=== PATIENT | female | born 1955 | race Hispanic/Latino ===

== ENCOUNTER → 2016-07-09 | Outpatient (REF) | payer OTHER ==
[~2016-07-09] MED LIST: /MOM400 PO; /PROC25SU PR; /WARF5TA PO; ALBU0.084 IN; AMLO10TA2 PO; BACL5TA PO; BISA10SU30 PR; DOCU10ELUD PO; KEPP1000 PO; KLOR20TA PO; METO100T PO; SERT-141 PO; TYLE325T5 PO; VIMP100T PO; VITA100037 PO; [UNRECOGNIZED DRUG - CODE] PO; magnesium gluconate PO
[2016-07-09 18:49] LABS: INR 2.14
== END ==
LOC: M LAB REF 17:27
PROVIDERS: ATTEND Physician Assistant
DX: I26.99 Other pulmonary embolism without acute cor pulmonale (principal)

== ENCOUNTER → 2016-07-30 | Outpatient (REF) | payer OTHER ==
[2016-07-30 20:13] LABS: MEAN CORPUSCULAR HEMOGLOBIN 29.2 pg (27.0-33.0); MEAN CORPUSCULAR VOLUME 88.5 fl (80.0-96.0); RED CELL DISTRIBUTION WIDTH 12.3 % (11.5-14.5); WHITE BLOOD COUNT 7.8 K/mm3 (4.0-10.0)
[2016-07-30 20:17] LABS: INR 2.1
[2016-07-30 21:15] LABS: ALBUMIN 3.8 GM/DL (3.2-5.2); ALBUMIN/GLOBULIN RATIO 1.03 (1.00-1.93); ALKALINE PHOSPHATASE 84 U/L (45-117); ALT/SGPT 19 U/L (12-78); ANION GAP 8 MEQ/L (8-16); AST/SGOT 16 U/L (15-37); BILIRUBIN,TOTAL 0.3 MG/DL (0.2-1.0); BLOOD UREA NITROGEN 10 MG/DL (7-18); CALCIUM LEVEL 8.8 MG/DL (8.8-10.2); CARBON DIOXIDE LEVEL 31 MEQ/L (21-32); CHLORIDE LEVEL 106 MEQ/L (98-107); CHOLESTEROL LEVEL 173 MG/DL (<200); CREATININE FOR GFR 0.48 MG/DL (0.55-1.02); FREE T4 1.02 NG/DL (0.76-1.46); GLOMERULAR FILTRATION RATE > 60.0 (>45); GLUCOSE, FASTING 79 MG/DL (80-110); POTASSIUM SERUM 4.1 MEQ/L (3.5-5.1); SODIUM LEVEL 145 MEQ/L (136-145); TOTAL PROTEIN 7.5 GM/DL (6.4-8.2); TRIGLYCERIDES LEVEL 143 MG/DL (<150)
== END ==
LOC: M SFHCADAM 14:27
PROVIDERS: ATTEND Physician Assistant
DX: I26.99 Other pulmonary embolism without acute cor pulmonale (principal); I10 Essential (primary) hypertension; E78.4 Other hyperlipidemia; R63.5 Abnormal weight gain; E55.9 Vitamin D deficiency, unspecified

== ENCOUNTER 2016-09-14 11:34 | Inpatient (IN) | payer OTHER ==
[~2016-09-14] VITALS: Ht 152.4 cm; Wt 60.7 kg
[2016-09-14] MEDS ORDERED: ATOR40TA PO (11:48)
[2016-09-14 12:23] LABS: BASO % 0.3 % (0.0-1.0); EOS # 0.1 K/mm3 (0.0-0.50); LARGE UNSTAINED CELL # 0.1 K/mm3 (0.0-0.4); LARGE UNSTAINED CELL % 0.7 % (0.0-4.0); LYMPH # 1.1 K/mm3 (1.5-4.5); LYMPH % 12.4 % (24.0-44.0); MEAN CORPUSCULAR HEMOGLOBIN 29.9 pg (27.0-33.0); MEAN CORPUSCULAR HGB CONC 34.5 g/dl (32.0-36.5); MEAN CORPUSCULAR VOLUME 86.7 fl (80.0-96.0); MONO # 0.2 K/mm3 (0.0-0.8); MONO % 2.6 % (0.0-5.0); PLATELET COUNT, AUTOMATED 256 k/mm3 (150-450); RED CELL DISTRIBUTION WIDTH 12.4 % (11.5-14.5); WHITE BLOOD COUNT 8.4 K/mm3 (4.0-10.0)
[2016-09-14 12:35] LABS: INR 1.85
[2016-09-14 12:50] LABS: ALBUMIN 3.9 GM/DL (3.2-5.2); ALBUMIN/GLOBULIN RATIO 0.98 (1.00-1.93); ALKALINE PHOSPHATASE 84 U/L (45-117); ALT/SGPT 22 U/L (12-78); ANION GAP 8 MEQ/L (8-16); AST/SGOT 14 U/L (15-37); BILIRUBIN,DIRECT < 0.1 MG/DL (0.0-0.2); BILIRUBIN,TOTAL 0.4 MG/DL (0.2-1.0); BLOOD UREA NITROGEN 9 MG/DL (7-18); CARBON DIOXIDE LEVEL 31 MEQ/L (21-32); CHLORIDE LEVEL 104 MEQ/L (98-107); CREATININE FOR GFR 0.55 MG/DL (0.55-1.02); GLOMERULAR FILTRATION RATE > 60.0 (>45); GLUCOSE, FASTING 112 MG/DL (80-110); POTASSIUM SERUM 3.7 MEQ/L (3.5-5.1); SODIUM LEVEL 143 MEQ/L (136-145); TOTAL PROTEIN 7.9 GM/DL (6.4-8.2)
--- NOTE | 2016-09-14 12:51 | REP ---
CT of the brain without IV contrast: Comparison is 12/08/2014. There is no hemorrhage. There is no edema, mass effect or midline shift. There is an old right frontal lobe infarct, unchanged. The cortical stripe is otherwise unremarkable. Ventricles are normal size and midline. The visualized paranasal sinuses and mastoid air cells are clear. Impression: There is no hemorrhage, acute infarct or mass. There is an old right frontal lobe infarct, unchanged. Signed by Carlos Funk MD 09/14/2016 12:42 P
--- NOTE | 2016-09-14 12:57 | REP ---
The patient sitting AP and lateral chest: Comparisons 06/19/2015. The lung manriquez are clear. The cardiac size is normal The isadora, mediastinum, and bony thorax are unremarkable. Impression: Negative AP and lateral chest. Signed by Carlos Funk MD 09/14/2016 12:49 P
[2016-09-14] MEDS ORDERED: ASPIRIN 325 MG TAB PO ONE (13:15)
[2016-09-14] MEDS ORDERED: ATOR1TAB19 PO (13:44)
[2016-09-14] MEDS ORDERED: VITA-121 PO (13:44)
[2016-09-14] MEDS ORDERED: KEPP1000 PO (13:44)
[2016-09-14] MEDS ORDERED: VIMP200T PO (13:44)
[2016-09-14] MEDS ORDERED: WARF-18 PO (13:44)
[2016-09-14] MEDS ORDERED: WARF-23 PO (13:44)
--- NOTE | 2016-09-14 14:41 | HPEPDOC ---
General Date of Admission Sep 14, 2016 at 13:55 Primary Care Physician: PHYLLIS YOST PA-C Attending Physician: CARLOS A ACEVEDO MD Chief Complaint The patient is a 61-year-old female admitted with a reason for visit of Weakness Rt Side Body. Source: Patient, Family ([id number]) History of Present Illness Ms. Kumar is a 61 y/o woman with a history of left-sided hemiparesis due to a hemorrhagic CVA in 2012 who presented to the ED today with an episode of right sided weakness and double vision. She states that last night, she accidently took 2 dose of her evening keppra dose - she states her son gave her a dose before bed and then she woke up around midnight and thought she had forgotten to take it and so took another dose. She took morning dose of keppra today at 8 am. Shortly thereafter, while sitting at a table eating breakfast, she had sudden onset of right arm and leg weakness, accompanied by dizziness, double vision, and nausea. Her family noticed her speech was slow and she seemed mildly confused. Her family assisted her to the bathroom, where she had one episode of nonbloody emesis and one episode of non-bloody diarrhea. Patient states symptoms lasted for about 30 minutes total. She had no numbness, tingling, or change in sensation with this episode. She states that her strength and vision are back to normal. She still feels mildly dizzy and "blah " and has a mild headache. Her family believes she is speaking and thinking normally. At baseline, she is unable to move her left arm other than some movement of her fingers, and she is unable to move her left leg. She wears a brace on her left lower leg and walks with a walker at baseline. She has decreased sensation in her left arm and leg at baseline. Overall, left-sided symptoms remained unchanged from baseline during and since this episode. Home Medications Scheduled Atorvastatin Calcium (Atorvastatin Calcium) 10 Mg Tab, 10 MG PO QHS, (Reported) Cholecalciferol (Vitamin D-3) 1,000 Unit Tab, 1,000 UNIT PO DAILY, (Reported) Lacosamide (Vimpat) 200 Mg Tab, 200 MG PO BID, (Reported) Levetiracetam (Keppra) 1,000 Mg Tab, 1,000 MG PO BID, (Reported) Warfarin Sod (Warfarin Sodium) 2.5 Mg Tab, 2.5 MG PO 3XW, (Reported) THU/THU/THU Warfarin Sod (Warfarin Sodium) 5 Mg Tab, 5 MG PO 4XWK, (Reported) //SAT/SUN Allergies Coded Allergies: Heparin (Verified Allergy, Severe, HIT, 04/20/13) Lisinopril (Verified Allergy, Severe, Angioedema, 04/20/13) SEAFOOD (Verified Allergy, Unknown, Unknown, 04/20/13) Past Medical History Medical History 1. 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 History of dysphagia requiring PEG tube; PEG tube is now removed 3. Seizure disorder 4. History of Heparin-induced thrombocytopenia 5. History of DVT in left arm and PE - 12/2012 6. Vitamin D deficiency 7. Hyperlipidemia Surgical History 1. Hysterectomy 2. Left cataract surgery Family History Father: colon cancer Mother: HTN, HLD, CAD Brother: Type 2 DM Sister: hypothyroid Social History * Smoker: non-smoker Alcohol: Denies Drugs: denies Lives with her daughter Review of Symptoms Constitutional: Reports: Malaise, Weakness (left arm and leg - chronic; right arm and leg - resolved), Denies: Chills, Fever Eyes: Reports: Vision change (double vision, now resolved), Denies: Pain ENT: Reports: Head Aches (mild squeezing frontal headache), Denies: Ear Pain Skin: Denies: Rash, Lesions Pulmonary: Denies: Dyspnea, Cough Cardiovascular: Denies: Chest Pain, Palpitations, Orthopnea Gastrointestinal: Reports: Nausea, Vomiting, Abdominal Pain (mild), Diarrhea, Denies: Constipation, Melena, Hematochezia Genitourinary: Denies: Dysuria, Frequency, Incontinence Hematologic: Denies: Bruising, Bleeding Excessively Musculoskeletal: Reports: Other Symptoms (left arm held stiff in mild flexion at elbow), Denies: Neck Pain, Back Pain Neurological: Reports: Weakness (chronic left side; acute on right side, now resolved), Numbness (chronic left arm and left leg), Denies: Change in speech, Confusion, Seizures Psych: Reports: Mood Normal Physical Examination General Exam: Positive: Alert, Cooperative, No Acute Distress Eye Exam: Positive: PERRLA, Conjunctiva & lids normal, EOMI ENT Exam: Positive: Atraumatic, Mucous membr. moist/pink, Pharynx Normal Neck Exam: Positive: Supple, Negative: JVD, thyromegaly Chest Exam: Positive: Clear to auscultation, Normal air movement, Negative: Rales, Rhonchi, Wheezing Heart Exam: Positive: Rate Normal, Regular Rhythm, Normal S1, Normal S2, Negative: Murmurs Abdomen Exam: Positive: Normal bowel sounds, Soft, Negative: Tenderness, Hepatospenomegaly Extremity Exam: Positive: Other (brace on left leg), Negative: Clubbing, Cyanosis, Edema Skin Exam: Positive: Nl turgor and temperature, Negative: Rash Neuro Exam: Positive: Normal Speech (speaks with accent but no slurring noted) , Cranial Nerves 3-12 NL, Reflexes 2+ (bilateral patellar), Negative: Strength at 5/5 X4 ext (left health plan specialist strength 2/5; left arm 1/5; left leg 2/5; right arm, leg, and health plan specialist strength 5/5 at all joints), Normal Tone ( increased tone in left upper extremity), Sensation Intact (sensation decrease in left arm and left leg) Psych Exam: Positive: Mental status NL, Mood NL, Oriented x 3 Vital Signs Vital Signs Date Time Temp Pulse Resp B/P (MAP) Pulse Ox O2 Delivery O2 Flow Rate FiO2 09/14/16 12:50 154/91 (112) 09/14/16 12:49 74 09/14/16 12:34 98 09/14/16 12:03 96.5 19 Room Air Laboratory Data Labs 24H Laboratory Tests 2 09/14/16 12:05: Bedside Glucose (Misc Panel) 103 09/14/16 12:14: White Blood Count 8.4, Red Blood Count 4.78, Hemoglobin 14.3, Hematocrit 41.4, Mean Corpuscular Volume 86.7, Mean Corpuscular Hemoglobin 29.9, Mean Corpuscular Hemoglobin Concent 34.5, Red Cell Distribution Width 12.4, Platelet Count 256, Neutrophils (%) (Auto) 83.0H, Lymphocytes (%) (Auto) 12.4L, Monocytes (%) (Auto) 2.6, Eosinophils (%) (Auto) 1.0, Basophils (%) (Auto) 0.3, Neutrophils # (Auto) 7.0, Lymphocytes # (Auto) 1.1L, Monocytes # (Auto) 0.2, Eosinophils # (Auto) 0.1, Basophils # (Auto) 0.0, Large Unclassified Cells % 0.7 , Large Unclassified Cells # 0.1, Prothrombin Time 21.4H, Prothromb Time International Ratio 1.85, Activated Partial Thromboplast Time 35.9, Anion Gap 8 , Glomerular Filtration Rate > 60.0, Calcium Level 9.0, Aspartate Amino Transf ( AST/SGOT) 14L, Alanine Aminotransferase (ALT/SGPT) 22, Alkaline Phosphatase 84, Total Bilirubin 0.4, Direct Bilirubin < 0.1, Total Creatine Kinase 68, Creatine Kinase MB 1.0, Creatine Kinase MB Relative Index 1.47, Troponin I < 0.02, Total Protein 7.9, Albumin 3.9, Albumin/Globulin Ratio 0.98L, Lipase 114, Thyroid Stimulating Hormone (TSH) 0.824 CBC/BMP Laboratory Tests 09/14/16 12:14 Red Blood Count 4.78, Mean Corpuscular Volume 86.7, Mean Corpuscular Hemoglobin 29.9, Mean Corpuscular Hemoglobin Concent 34.5, Red Cell Distribution Width 12.4 , Neutrophils (%) (Auto) 83.0 H, Lymphocytes (%) (Auto) 12.4 L, Monocytes (%) ( Auto) 2.6, Eosinophils (%) (Auto) 1.0, Basophils (%) (Auto) 0.3, Neutrophils # ( Auto) 7.0, Lymphocytes # (Auto) 1.1 L, Monocytes # (Auto) 0.2, Eosinophils # ( Auto) 0.1, Basophils # (Auto) 0.0 RAD Interpretation STUDY: CXR Rad Actions: Report Reviewed RAD Interpretation: Normal Problems (1) Weakness of right side of body Status: Acute Response to Treatment: Improving Problem Text: Symptoms of right sided weakness and double vision resolved after 30 minutes. She has some residual headache, dizziness, and malaise. - Head CT shows no acute infarct or bleed. - Ddx: TIA vs. CVA vs. medication reaction due to taking an extra dose of keppra. S- he follows with Dr. Banda; ED physician spoke with him, and he recommended MRI/MRA which is pending. He recommended ASA 325 mg PO daily until INR is therapeutic. - INR 1.89 today. She normally takes Warfarin 2.5 mg on M,W,F and 5 mg ROW. Warfarin 7.5 mg ordered for today. Recheck PT/INR in the morning. - Neurochecks - Monitor on telemetry (2) History of hemorrhagic stroke with residual hemiparesis Problem Text: Left sided symptoms are at baseline per patient and family. (3) Hyperlipidemia Status: Chronic Response to Treatment: Stable Problem Text: Continue atorvastatin (4) Personal history of DVT (deep vein thrombosis) Status: Chronic (5) Seizure disorder Status: Chronic Response to Treatment: Stable Problem Text: Continue keppra and vimpat (6) History of heparin-induced thrombocytopenia Problem Text: avoid heparin Plan / VTE VTE Prophylaxis Ordered?: Yes (warfarin) CARLOS A ACEVEDO MD Sep 14, 2016 14:41
[2016-09-14 15:57] VITALS: BP 160/85
[2016-09-14 17:00] VITALS: BP 144/76
[2016-09-14] MEDS ORDERED: WARFARIN SOD 7.5 MG TAB PO ONE (17:00)
--- NOTE | 2016-09-14 19:34 | ECGEPIP ---
Stationary ECG Study [facility] - ED Test Date: 2016-09-14 Pat Name: INDIRA MCCLURE Department: Room: [facility] Gender: F Assistant Front End Manager: andrew : 1955 Requested By: REGINA Castro Order Number: [id number] Reading MD: Mirian Damon Measurements Intervals Crooks Rate: 61 P: 40 CT: 191 QRS: 23 QRSD: 101 T: 12 QT: 393 QTc: 399 Interpretive Statements SINUS RHYTHM NONSPECIFIC T-WAVE ABNORMALITY DECREASED RATE 04/20/13 Electronically Signed On 09-14-2016 19:34:11 EDT by Mirian Damon
[2016-09-14 20:16] VITALS: BP 142/83
[2016-09-14] MEDS: ATORVASTATIN 10 MG TAB PO SCH (21:05)
[2016-09-14] MEDS: levETIRAcetam 250MG TABLET (KEPPRA) PO SCH (21:05)
[2016-09-15 00:03] VITALS: BP 110/66
[2016-09-15 04:35] LABS: INR 2.34
[2016-09-15 04:40] LABS: ANION GAP 7 MEQ/L (8-16); BLOOD UREA NITROGEN 8 MG/DL (7-18); CALCIUM LEVEL 8.8 MG/DL (8.8-10.2); CARBON DIOXIDE LEVEL 28 MEQ/L (21-32); CHLORIDE LEVEL 107 MEQ/L (98-107); CREATININE FOR GFR 0.57 MG/DL (0.55-1.02); GLOMERULAR FILTRATION RATE > 60.0 (>45); GLUCOSE, FASTING 96 MG/DL (80-110); POTASSIUM SERUM 3.6 MEQ/L (3.5-5.1); SODIUM LEVEL 142 MEQ/L (136-145)
[2016-09-15 04:47] VITALS: BP 114/68
--- NOTE | 2016-09-15 05:46 | REP ---
MRA BRAIN WITHOUT CONTRAST: HISTORY: Infarction. 3D [id number] MR angiograph was performed at the level of the [place] of [place]. There is no aneurysm, arteriovenous malformation or atherosclerotic lesion. The major intracranial vessels are patent. The right vertebral artery is not seen. This may be secondary to hypoplasia or atherosclerotic disease. IMPRESSION: 1. There is no aneurysm or arteriovenous malformation. 2. The right vertebral artery is not seen. This may be secondary to hypoplasia or atherosclerotic disease. Signed by Cirilo Jones MD 09/15/2016 08:34 A
--- NOTE | 2016-09-15 05:49 | REP ---
MRI BRAIN WITHOUT CONTRAST: HISTORY: Infarction. COMPARISON: CT 09/14/2016 and MR 04/21/2013. An area of increased signal intensity on T2-weighted images is present in the right parietal lobe. There is dilatation of the overlying cortical sulci and posterior body of the right lateral ventricle. This represents an old infarction. A small chronic hemorrhagic component is present. Scattered punctate areas of increased signal intensity on T2-weighted images are present in the periventricular and subcortical white matter. This represents small vessel ischemic disease. There is no intraparenchymal hemorrhage, acute infarct, mass or midline shift. The ventricular system and cortical sulci are dilated consistent with minimal volume loss. There is no extracerebral collection. The sinuses are clear. IMPRESSION: 1. Old right parietal lobe infarction. 2. Minimal small vessel ischemic disease. 3. Minimal volume loss. Signed by Cirilo Jones MD 09/15/2016 08:35 A
[2016-09-15 08:00] VITALS: BP 117/68
[2016-09-15] MEDS ORDERED: ASPIRIN 325 MG TAB PO SCH (09:00)
[2016-09-15] MEDS ORDERED: SLF 3 ML SYR IV PRN (09:15)
[2016-09-15] MEDS: levETIRAcetam 250MG TABLET (KEPPRA) PO SCH ×2 (09:25→22:14)
[2016-09-15] MEDS: LACOSAMIDE 50 MG TAB (VIMPAT) PO SCH ×2 (09:25→22:15)
[2016-09-15] MEDS: VITAMIN D 1,000 INTERNATIONAL UNITS TABLET PO SCH (09:25)
--- NOTE | 2016-09-15 09:46 | IPNPDOC ---
Subjective Date Seen The patient was seen on 09/15/16. Subjective Chief Complaint/HPI The patient is a 61-year-old female admitted with a reason for visit of Weakness Rt Side Body. Events since last encounter Feels back to baseline except for mild dizziness with ambulation. MRI/MRA completed and negative for acute findings. Constitutional: Denies: Chills, Fever, Night Sweats Skin: Denies: Rash, Lesions, Breakdown Pulmonary: Denies: Dyspnea, Cough, Pleuritic Chest Pain, Other Symptoms Cardiovascular: Reports: Lt Headedness, Denies: Chest Pain, Palpitations, Orthopnea Gastrointestinal: Denies: Nausea, Vomiting, Abdominal Pain, Diarrhea, Constipation Genitourinary: Denies: Dysuria, Frequency, Incontinence, Retention Psych: Reports: Mood Normal, Denies: Depression, Memory Issues Objective Physical Examination General Exam: Positive: Alert, Cooperative, No Acute Distress Eye Exam: Positive: PERRLA, Conjunctiva & lids normal, EOMI ENT Exam: Positive: Atraumatic, Mucous membr. moist/pink, Pharynx Normal Neck Exam: Positive: Supple, Negative: JVD, thyromegaly Chest Exam: Positive: Clear to auscultation, Normal air movement, Negative: Rales, Rhonchi, Wheezing Heart Exam: Positive: Rate Normal, Regular Rhythm, Normal S1, Normal S2, Negative: Murmurs Abdomen Exam: Positive: Normal bowel sounds, Soft, Negative: Tenderness, Hepatospenomegaly Extremity Exam: Positive: Other (brace on left leg), Negative: Clubbing, Cyanosis, Edema Skin Exam: Positive: Nl turgor and temperature, Negative: Rash Neuro Exam: Positive: Normal Speech (speaks with accent but no slurring noted) , Cranial Nerves 3-12 NL, Reflexes 2+ (bilateral patellar), Negative: Strength at 5/5 X4 ext (left gluing pressman strength 2/5; left arm 1/5; left leg 2/5; right arm, leg, and gluing pressman strength 5/5 at all joints), Normal Tone ( increased tone in left upper extremity), Sensation Intact (sensation decrease in left arm and left leg) Psych Exam: Positive: Mental status NL, Mood NL, Oriented x 3 Assessment /Plan Problems (1) Weakness of right side of body Status: Acute Response to Treatment: Improving Problem Text: favor 2 Keppra toxicity 09/15/2016: No further weakness to right side. feels back to baseline except for mild dizziness with ambulation. Transfer to Med/surg. PT/OT ordered. Anticipate DC home in 1-2 days. INR therapeutic at 2.3 today. resume home warfarin dosing. ASA DC'd Symptoms of right sided weakness and double vision resolved after 30 minutes. She has some residual headache, dizziness, and malaise. - Head CT shows no acute infarct or bleed. 09/14/16 MRI/MRA NAD (2) History of hemorrhagic stroke with residual hemiparesis Problem Text: Left sided symptoms are at baseline per patient and family. (3) Hyperlipidemia Status: Chronic Response to Treatment: Stable Problem Text: Continue atorvastatin (4) Personal history of DVT (deep vein thrombosis) Permanent Comment: History of left upper extremity DVT and PE in 12/2012 Last Edited By: Lenora Wilson MD on Sep 14, 2016 14:37 Status: Chronic (5) Seizure disorder Status: Chronic Response to Treatment: Stable Problem Text: Continue keppra and vimpat (6) History of heparin-induced thrombocytopenia Problem Text: avoid heparin Plan/VTE VTE Prophylaxis Ordered?: Yes (warfarin) VS, I&O, 24H, Fishbone Vital Signs/I&O Vital Signs Date Time Temp Pulse Resp B/P (MAP) Pulse Ox O2 Delivery O2 Flow Rate FiO2 09/15/16 08:00 97.6 68 16 117/68 (84) 99 Room Air I&O- Last 24 Hours up to 6 AM 09/15/16 06:00 Intake Total 690 ml Output Total 550 ml Balance 140 ml Laboratory Data 24H LABS Laboratory Tests 2 09/14/16 12:05: Bedside Glucose (Misc Panel) 103 09/14/16 12:14: White Blood Count 8.4, Red Blood Count 4.78, Hemoglobin 14.3, Hematocrit 41.4, Mean Corpuscular Volume 86.7, Mean Corpuscular Hemoglobin 29.9, Mean Corpuscular Hemoglobin Concent 34.5, Red Cell Distribution Width 12.4, Platelet Count 256, Neutrophils (%) (Auto) 83.0H, Lymphocytes (%) (Auto) 12.4L, Monocytes (%) (Auto) 2.6, Eosinophils (%) (Auto) 1.0, Basophils (%) (Auto) 0.3, Neutrophils # (Auto) 7.0, Lymphocytes # (Auto) 1.1L, Monocytes # (Auto) 0.2, Eosinophils # (Auto) 0.1, Basophils # (Auto) 0.0, Large Unclassified Cells % 0.7 , Large Unclassified Cells # 0.1, Prothrombin Time 21.4H, Prothromb Time International Ratio 1.85, Activated Partial Thromboplast Time 35.9, Anion Gap 8 , Glomerular Filtration Rate > 60.0, Calcium Level 9.0, Aspartate Amino Transf ( AST/SGOT) 14L, Alanine Aminotransferase (ALT/SGPT) 22, Alkaline Phosphatase 84, Total Bilirubin 0.4, Direct Bilirubin < 0.1, Total Creatine Kinase 68, Creatine Kinase MB 1.0, Creatine Kinase MB Relative Index 1.47, Troponin I < 0.02, Total Protein 7.9, Albumin 3.9, Albumin/Globulin Ratio 0.98L, Lipase 114, Thyroid Stimulating Hormone (TSH) 0.824 09/14/16 15:35: Urine Appearance CLEAR, Urine Color STRAW, Urine pH 7.0, Urine Specific [place] 1.004, Urine Protein NEGATIVE, Urine Glucose (UA) NEGATIVE, Urine Ketones NEGATIVE, Urine Urobilinogen 0.2, Urine Bilirubin NEGATIVE, Urine Leukocyte Esterase NEGATIVE, Urine Blood 1+H, Urine Nitrite NEGATIVE, Urine WBC (Auto) 0, Urine RBC (Auto) 1, Urine Hyaline Casts (Auto) 0, Urine Bacteria (Auto) NEGATIVE , Urine Squamous Epithelial Cells 0, Urine Sperm (Auto) 09/15/16 04:14: Prothrombin Time 25.7H, Prothromb Time International Ratio 2.34, Anion Gap 7L, Glomerular Filtration Rate > 60.0, Calcium Level 8.8, Blood Urea Nitrogen 8, Creatinine 0.57, Sodium Level 142, Potassium Level 3.6, Chloride Level 107, Carbon Dioxide Level 28 CBC/BMP Laboratory Tests 09/14/16 12:14 Red Blood Count 4.78, Mean Corpuscular Volume 86.7, Mean Corpuscular Hemoglobin 29.9, Mean Corpuscular Hemoglobin Concent 34.5, Red Cell Distribution Width 12.4 , Neutrophils (%) (Auto) 83.0 H, Lymphocytes (%) (Auto) 12.4 L, Monocytes (%) ( Auto) 2.6, Eosinophils (%) (Auto) 1.0, Basophils (%) (Auto) 0.3, Neutrophils # ( Auto) 7.0, Lymphocytes # (Auto) 1.1 L, Monocytes # (Auto) 0.2, Eosinophils # ( Auto) 0.1, Basophils # (Auto) 0.0 09/15/16 04:14 Calcium Level 8.8 Melissa Hutchison Sep 15, 2016 09:46 Wally Parker M.D. Sep 15, 2016 15:36
[2016-09-15 12:00] VITALS: BP 119/67
[2016-09-15 14:15] VITALS: BP 122/75
[2016-09-15] MEDS: SLF 3 ML SYR IV SCH ×2 (15:00→22:00)
[2016-09-15] MEDS ORDERED: WARFARIN SOD 2.5 MG TAB PO SCH (17:00)
[2016-09-15 22:00] VITALS: BP 110/66
[2016-09-15] MEDS: ATORVASTATIN 10 MG TAB PO SCH (22:14)
[2016-09-16 06:00] VITALS: BP 110/64
[2016-09-16] MEDS: SLF 3 ML SYR IV SCH (06:00)
[2016-09-16 06:25] LABS: BASO % 0.3 % (0.0-1.0); EOS # 0.2 K/mm3 (0.0-0.50); EOS % 2.7 % (0.0-3.0); LARGE UNSTAINED CELL # 0.1 K/mm3 (0.0-0.4); LARGE UNSTAINED CELL % 1.2 % (0.0-4.0); LYMPH # 2.2 K/mm3 (1.5-4.5); LYMPH % 28.6 % (24.0-44.0); MEAN CORPUSCULAR HEMOGLOBIN 30.4 pg (27.0-33.0); MEAN CORPUSCULAR HGB CONC 34.7 g/dl (32.0-36.5); MEAN CORPUSCULAR VOLUME 87.6 fl (80.0-96.0); MONO # 0.4 K/mm3 (0.0-0.8); MONO % 4.7 % (0.0-5.0); NEUTROPHILS # 4.7 K/mm3 (1.8-7.7); NEUTROPHILS % 62.6 % (36.0-66.0); PLATELET COUNT, AUTOMATED 257 k/mm3 (150-450); RED CELL DISTRIBUTION WIDTH 12.7 % (11.5-14.5); WHITE BLOOD COUNT 7.4 K/mm3 (4.0-10.0)
[2016-09-16 06:33] LABS: INR 2.59
[2016-09-16 06:42] LABS: ALBUMIN 3.3 GM/DL (3.2-5.2); ALBUMIN/GLOBULIN RATIO 0.92 (1.00-1.93); ALKALINE PHOSPHATASE 73 U/L (45-117); ALT/SGPT 19 U/L (12-78); ANION GAP 7 MEQ/L (8-16); AST/SGOT 12 U/L (15-37); BILIRUBIN,TOTAL 0.3 MG/DL (0.2-1.0); BLOOD UREA NITROGEN 12 MG/DL (7-18); CALCIUM LEVEL 8.5 MG/DL (8.8-10.2); CARBON DIOXIDE LEVEL 27 MEQ/L (21-32); CHLORIDE LEVEL 108 MEQ/L (98-107); CREATININE FOR GFR 0.56 MG/DL (0.55-1.02); GLOMERULAR FILTRATION RATE > 60.0 (>45); GLUCOSE, FASTING 93 MG/DL (80-110); POTASSIUM SERUM 3.6 MEQ/L (3.5-5.1); SODIUM LEVEL 142 MEQ/L (136-145); TOTAL PROTEIN 6.9 GM/DL (6.4-8.2)
[2016-09-16] MEDS: VITAMIN D 1,000 INTERNATIONAL UNITS TABLET PO SCH (08:19)
[2016-09-16] MEDS: levETIRAcetam 250MG TABLET (KEPPRA) PO SCH (08:21)
[2016-09-16] MEDS: LACOSAMIDE 50 MG TAB (VIMPAT) PO SCH (08:21)
[2016-09-16] MEDS ORDERED: WARFARIN SOD 5 MG TAB PO SCH (17:00)
--- NOTE | 2016-09-16 20:02 | DSES ---
DATE OF ADMISSION: 09/14/2016 DATE OF DISCHARGE: 09/16/2016 PRIMARY CARE PROVIDER: Ruby Rendon PA-C HISTORY OF PRESENT ILLNESS: This is a 61-year-old female with a history of left-sided hemiparesis secondary to a hemorrhagic CVA in 2012, who presented to the emergency room secondary to an episode of right-sided weakness and double vision. The patient accidentally took a second dose of her evening Keppra, developed a sudden onset right arm and leg weakness with dizziness, double vision and nausea. Family had noticed that her speech was slow and she seemed mildly confused. She was assisted to the bathroom at that time, where she had an episode of nonbloody emesis and one episode of nonbloody diarrhea. Symptoms and episode lasted for approximately 30 minutes. Patient was brought to the emergency room for further evaluation, had complained of feeling very dizzy and blah upon evaluation. HOSPITAL COURSE : Patient underwent multiple imaging studies including MRI/MRA of the brain, CT of the brain, and chest x-ray, all of which proved negative for acute findings. Patient had some slight lightheadedness on initial admission, however that has resolved. She was maintained on telemetry for 24 hours and had negative findings. Patient was evaluated by physical therapy today, has been deemed safe for discharge, patient has public health services in the home and wishes to resume them. Patient denies any complaints today. Denies dizziness, headache, blurred vision, or shortness of breath. Daughter is at bedside. PHYSICAL EXAMINATION: Today: Blood pressure 110/64, oxygen saturation 94% on room air, respiratory rate 16, heart rate 70, temperature 97.4. HEENT: Neck is supple without lymphadenopathy or jugular venous distention (JVD). CARDIOVASCULAR: Heart rate and rhythm are regular. PULMONARY: Lungs are clear. NEUROLOGIC: Patient is alert and oriented times three. No resting tremors appreciated. Patient does have significant left-sided hemiparesis with an ankle foot orthosis (AFO) brace intact. PSYCHIATRIC: Affect is appropriate and congruent. Patient does understand Vietnamese and seems to speak and respond appropriately, however her daughter does provide some translation services in Romanian. DISCHARGE DIAGNOSES: 1. Right-sided weakness. 2. History of hemorrhagic stroke with residual left-sided hemiparesis. SECONDARY DIAGNOSES: Include: 1. Hyperlipidemia. 2. History of seizure disorder. 3. History of heparin-induced thrombocytopenia. 4. Personal history of deep venous thrombosis (DVT). PLAN: Patient will be discharged home. Diet is a 2 gram sodium. Activity is as tolerated with assistive devices as needed. Patient will resume her public health services within the home. MEDICATIONS: Are as follows: - atorvastatin 10 mg by mouth nightly - vitamin D3 1000 international units by mouth daily - glucosamine 200 mg by mouth twice a day - Keppra 1000 mg by mouth twice a day - warfarin sodium 2.5 mg by mouth three times per week, alternating with warfarin sodium 5 mg four times per week Patient is discharged in stable and satisfactory condition with no further questions at time of discharge.
== END 2016-09-16 11:59 | disposition home health service (06) | DRG 812 ==
LOC: M ED 12:37 → M ED INP 13:55 → M ICU 15:45 → M MSPAV 09-15 14:15
PROVIDERS: ADMIT Family Medicine; ATTEND Family Medicine
DX: T42.71XA Poisoning by unspecified antiepileptic and sedative-hypnotic drugs, accidental (unintentional), initial encounter (principal); I69.354 Hemiplegia and hemiparesis following cerebral infarction affecting left non-dominant side; R42 Dizziness and giddiness; R51 Headache; R53.81 Other malaise; G40.909 Epilepsy, unspecified, not intractable, without status epilepticus; M62.81 Muscle weakness (generalized); E55.9 Vitamin D deficiency, unspecified; E78.5 Hyperlipidemia, unspecified; Z88.8 Allergy status to other drugs, medicaments and biological substances; Z86.711 Personal history of pulmonary embolism; Z86.718 Personal history of other venous thrombosis and embolism; Z91.013 Allergy to seafood; Z79.01 Long term (current) use of anticoagulants; Z79.899 Other long term (current) drug therapy

== ENCOUNTER → 2016-09-29 | Outpatient (CLI) | payer OTHER ==
[~2016-09-29] MED LIST changes: +ATOR1TAB19 PO; +ATOR40TA PO; +VIMP200T PO; +VITA-121 PO; +WARF-18 PO; +WARF-23 PO
--- NOTE | 2016-09-29 16:08 | REPMRS ---
Patient History The patient states she has not had a clinical breast exam in over a year. No known family history of cancer. Digital Mammo Screening Bilat: September 29, 2016 - Exam #: [id number] Bilateral CC and MLO view(s) were taken. Technologist: Bernie Cervantes, Technologist Prior study comparison: December 25, 2014, bilateral digital mammo screening bilat performed at [facility]. FINDINGS: There are scattered fibroglandular densities. There is a moderate amount of residual fibroglandular tissue which is fairly symmetric. There is no interval development of dominant mass, architectural distortion, or clustered microcalcification typical of malignancy. There has been no change in the appearance of the mammogram from the prior studies. ASSESSMENT: BI-RADS/ACR category 1 mammogram. Negative. Recommendation Routine screening mammogram of both breasts in 1 year (for women over age 40). This mammogram was interpreted with the aid of an FDA-approved computer-aided dectection system. Electronically Signed By: Jose Calderon MD 09/29/16 0539
== END ==
LOC: M RAD 14:05
PROVIDERS: ATTEND Physician Assistant
DX: Z12.31 Encounter for screening mammogram for malignant neoplasm of breast (principal)

== ENCOUNTER → 2016-10-06 | Outpatient (REF) | payer OTHER ==
[~2016-10-06] MED LIST changes: -ATOR40TA PO; +ATOR40TA75 PO; +KEPP10002 PO
== END ==
LOC: M LAB REF 16:39
PROVIDERS: ATTEND Internal Medicine Medical Oncology
DX: I82.90 Acute embolism and thrombosis of unspecified vein (principal)

== ENCOUNTER → 2016-10-13 | Outpatient (CLI) | payer OTHER | LOC: M PT 13:00 | PROVIDERS: ATTEND Physician Assistant | DX: I69.059 Hemiplegia and hemiparesis following nontraumatic subarachnoid hemorrhage affecting unspecified side (principal) ==

== ENCOUNTER 2017-05-18 11:37 | Inpatient (IN) | payer OTHER ==
[2017-05-18 12:10] LABS: BEDSIDE GLUCOSE 77 MG/DL (80-115)
[2017-05-18 12:49] LABS: BASO % 0.2 % (0.0-1.0); EOS # 0.1 10^3/uL (0.0-0.50); EOS % 2.2 % (0.0-3.0); HEMATOCRIT 40.9 % (36.0-47.0); HEMOGLOBIN 13.6 g/dl (12.0-16.0); IMMATURE GRANULOCYTE % 0.3 % (0-3.0); LYMPH # 1.6 10^3/uL (1.5-4.5); LYMPH % 27.8 % (24.0-44.0); MEAN CORPUSCULAR HEMOGLOBIN 29.2 pg (27.0-33.0); MEAN CORPUSCULAR HGB CONC 33.3 g/dl (32.0-36.5); MEAN CORPUSCULAR VOLUME 87.8 fl (80.0-96.0); MONO # 0.3 10^3/uL (0.0-0.8); MONO % 4.7 % (0.0-5.0); NEUTROPHILS # 3.8 10^3/uL (1.8-7.7); NEUTROPHILS % 64.8 % (36.0-66.0); PLATELET COUNT, AUTOMATED 256 10^3/uL (150-450); RED BLOOD COUNT 4.66 10^6/uL (4.00-5.40); RED CELL DISTRIBUTION WIDTH 12.2 % (11.5-14.5); WHITE BLOOD COUNT 5.8 10^3/uL (4.0-10.0)
[2017-05-18 13:04] LABS: INR 2.18; PROTHROMBIN TIME 25.1 SECONDS (12.4-14.5)
[2017-05-18 13:05] LABS: PARTIAL THROMBOPLASTIN TIME 39.7 SECONDS (26.8-37.9)
[2017-05-18 13:21] LABS: ANION GAP 6 MEQ/L (8-16); BLOOD UREA NITROGEN 8 MG/DL (7-18); CALCIUM LEVEL 8.6 MG/DL (8.8-10.2); CARBON DIOXIDE LEVEL 31 MEQ/L (21-32); CHLORIDE LEVEL 106 MEQ/L (98-107); CPK CREATINE PHOSPHOKINASE 55 U/L (26-192); CREATININE FOR GFR 0.51 MG/DL (0.55-1.30); GLOMERULAR FILTRATION RATE > 60.0 (>45); GLUCOSE, FASTING 102 MG/DL (70-100); MB/CK RELATIVE INDEX 1.81 (< OR =4); POTASSIUM SERUM 3.8 MEQ/L (3.5-5.1); SODIUM LEVEL 143 MEQ/L (136-145); TROPONIN I < 0.02 NG/ML (< 0.10)
[2017-05-18 15:53] LABS: ERYTHROCYTE SEDIMENTATION RATE 17 mm/hr (0-30)
[2017-05-18] MEDS: WARFARIN SOD 2.5 MG TAB PO (17:25)
[2017-05-18] MEDS ORDERED: SLF 3 ML SYR IV (17:30)
[2017-05-18] MEDS: ASPIRIN 81 MG CHEW TABLET PO (18:14)
[2017-05-18 18:58] LABS: C REACTIVE PROTEIN QUANTITATIV < 0.30 MG/DL (0.00-0.30); CPK CREATINE PHOSPHOKINASE 80 U/L (26-192); MB/CK RELATIVE INDEX 1.25 (< OR =4); TROPONIN I < 0.02 NG/ML (< 0.10)
[2017-05-18] MEDS: amLODIPine 5 MG TAB PO (19:06)
[2017-05-18] MEDS: levETIRAcetam 250MG TABLET (KEPPRA) PO (21:13)
[2017-05-18] MEDS: ATORVASTATIN 10 MG TAB PO (21:13)
[2017-05-18] MEDS: SLF 3 ML SYR IV (21:14)
[2017-05-18] MEDS: ACETAMINOPHEN TAB 650MG DOSE (2X325MG) PO (21:14)
[2017-05-18] MEDS: LACOSAMIDE 50 MG TAB (VIMPAT) PO (21:14)
[2017-05-19 02:42] LABS: CPK CREATINE PHOSPHOKINASE 67 U/L (26-192); MB/CK RELATIVE INDEX 1.49 (< OR =4); TROPONIN I < 0.02 NG/ML (< 0.10)
[2017-05-19] MEDS: SLF 3 ML SYR IV ×3 (03:49→21:15)
[2017-05-19 05:35] LABS: BASO % 0.2 % (0.0-1.0); EOS # 0.3 10^3/uL (0.0-0.50); EOS % 2.9 % (0.0-3.0); HEMATOCRIT 40.3 % (36.0-47.0); HEMOGLOBIN 13.5 g/dl (12.0-16.0); IMMATURE GRANULOCYTE % 0.2 % (0-3.0); LYMPH # 3.3 10^3/uL (1.5-4.5); MEAN CORPUSCULAR HEMOGLOBIN 29.3 pg (27.0-33.0); MEAN CORPUSCULAR HGB CONC 33.5 g/dl (32.0-36.5); MEAN CORPUSCULAR VOLUME 87.6 fl (80.0-96.0); MONO # 0.5 10^3/uL (0.0-0.8); MONO % 5.8 % (0.0-5.0); NEUTROPHILS # 4.4 10^3/uL (1.8-7.7); NEUTROPHILS % 51.9 % (36.0-66.0); PLATELET COUNT, AUTOMATED 255 10^3/uL (150-450); RED CELL DISTRIBUTION WIDTH 12.2 % (11.5-14.5); WHITE BLOOD COUNT 8.6 10^3/uL (4.0-10.0)
[2017-05-19 05:43] LABS: INR 2.45; PROTHROMBIN TIME 27.6 SECONDS (12.4-14.5)
[2017-05-19 06:05] LABS: ALBUMIN 3.7 GM/DL (3.2-5.2); ALBUMIN/GLOBULIN RATIO 1.09 (1.00-1.93); ALKALINE PHOSPHATASE 72 U/L (45-117); ALT/SGPT 19 U/L (12-78); ANION GAP 8 MEQ/L (8-16); AST/SGOT 16 U/L (7-37); BILIRUBIN,TOTAL 0.4 MG/DL (0.2-1.0); BLOOD UREA NITROGEN 11 MG/DL (7-18); CALCIUM LEVEL 8.4 MG/DL (8.8-10.2); CARBON DIOXIDE LEVEL 28 MEQ/L (21-32); CHLORIDE LEVEL 108 MEQ/L (98-107); CHOLESTEROL LEVEL 162 MG/DL (<200); CREATININE FOR GFR 0.58 MG/DL (0.55-1.30); GLOMERULAR FILTRATION RATE > 60.0 (>45); GLUCOSE, FASTING 91 MG/DL (70-100); HDL CHOLESTEROL 81 MG/DL (>40); LDL CHOLESTEROL 63.6 MG/DL (<100); MAGNESIUM LEVEL 2.3 MG/DL (1.8-2.4); NON-HDL-C 81 MG/DL; POTASSIUM SERUM 3.7 MEQ/L (3.5-5.1); SODIUM LEVEL 144 MEQ/L (136-145); TOTAL PROTEIN 7.1 GM/DL (6.4-8.2); TRIGLYCERIDES LEVEL 87 MG/DL (<150)
[2017-05-19] MEDS: VITAMIN D 1,000 INTERNATIONAL UNITS TABLET PO (08:16)
[2017-05-19] MEDS: LACOSAMIDE 50 MG TAB (VIMPAT) PO ×2 (08:17→21:15)
[2017-05-19] MEDS: ASPIRIN 81 MG CHEW TABLET PO (08:17)
[2017-05-19] MEDS: levETIRAcetam 250MG TABLET (KEPPRA) PO ×2 (08:17→21:14)
[2017-05-19] MEDS: amLODIPine 5 MG TAB PO (08:17)
[2017-05-19] MEDS ORDERED: amLODIPine 5 MG TAB PO (09:00)
[2017-05-19 09:17] LABS: DRVV SCREEN 62.9 SEC
[2017-05-19 09:26] LABS: PTT LUPUS TYPE ANTICOAG SCREEN 1.5 (0-1.2)
[2017-05-19 09:33] LABS: DRVV CONFIRM 44.9 SEC; LUPUS CONFIRM RATIO 1.2
[2017-05-19 09:34] LABS: NORMALIZED RATIO 1.25 (0.00-1.20)
[2017-05-19 10:47] LABS: CPK CREATINE PHOSPHOKINASE 70 U/L (26-192); TROPONIN I < 0.02 NG/ML (< 0.10)
[2017-05-19 10:48] LABS: MB/CK RELATIVE INDEX 1.42 (< OR =4)
[2017-05-19] MEDS ORDERED: WARFARIN SOD 5 MG TAB PO (17:00)
[2017-05-19] MEDS: ATORVASTATIN 10 MG TAB PO (21:14)
[2017-05-19] MEDS: WARFARIN SOD 5 MG TAB PO (21:14)
[2017-05-20] MEDS: SLF 3 ML SYR IV (04:21)
[2017-05-20 05:41] LABS: BASO % 0.4 % (0.0-1.0); EOS # 0.3 10^3/uL (0.0-0.50); EOS % 3.3 % (0.0-3.0); IMMATURE GRANULOCYTE % 0.3 % (0-3.0); LYMPH # 2.7 10^3/uL (1.5-4.5); LYMPH % 34.4 % (24.0-44.0); MEAN CORPUSCULAR HEMOGLOBIN 29.1 pg (27.0-33.0); MEAN CORPUSCULAR HGB CONC 33.3 g/dl (32.0-36.5); MEAN CORPUSCULAR VOLUME 87.4 fl (80.0-96.0); MONO # 0.5 10^3/uL (0.0-0.8); MONO % 5.8 % (0.0-5.0); NEUTROPHILS # 4.5 10^3/uL (1.8-7.7); NEUTROPHILS % 55.8 % (36.0-66.0); PLATELET COUNT, AUTOMATED 263 10^3/uL (150-450); RED BLOOD COUNT 4.46 10^6/uL (4.00-5.40); RED CELL DISTRIBUTION WIDTH 12.2 % (11.5-14.5)
[2017-05-20 05:52] LABS: INR 2.91; PROTHROMBIN TIME 31.7 SECONDS (12.4-14.5)
[2017-05-20 05:59] LABS: ALBUMIN 3.4 GM/DL (3.2-5.2); ALBUMIN/GLOBULIN RATIO 0.92 (1.00-1.93); ALKALINE PHOSPHATASE 69 U/L (45-117); ALT/SGPT 15 U/L (12-78); ANION GAP 7 MEQ/L (8-16); AST/SGOT 13 U/L (7-37); BILIRUBIN,TOTAL 0.3 MG/DL (0.2-1.0); BLOOD UREA NITROGEN 14 MG/DL (7-18); CALCIUM LEVEL 8.4 MG/DL (8.8-10.2); CARBON DIOXIDE LEVEL 26 MEQ/L (21-32); CHLORIDE LEVEL 108 MEQ/L (98-107); CREATININE FOR GFR 0.51 MG/DL (0.55-1.30); GLOMERULAR FILTRATION RATE > 60.0 (>45); GLUCOSE, FASTING 101 MG/DL (70-100); POTASSIUM SERUM 3.8 MEQ/L (3.5-5.1); SODIUM LEVEL 141 MEQ/L (136-145); TOTAL PROTEIN 7.1 GM/DL (6.4-8.2)
[2017-05-20] MEDS: VITAMIN D 1,000 INTERNATIONAL UNITS TABLET PO (08:33)
[2017-05-20] MEDS: levETIRAcetam 250MG TABLET (KEPPRA) PO (08:34)
[2017-05-20] MEDS: ASPIRIN 81 MG CHEW TABLET PO (08:34)
[2017-05-20] MEDS: LACOSAMIDE 50 MG TAB (VIMPAT) PO (08:34)
[2017-05-20] MEDS: amLODIPine 5 MG TAB PO (08:35)
[2017-05-20] MEDS ORDERED: WARFARIN SOD 2.5 MG TAB PO (21:00)
[2017-05-22 00:06] LABS: HEXAGONAL PHASE PHOSPHOLIPID 4 sec (0-11)
== END 2017-05-20 13:06 | disposition home health service (06) | DRG 47 ==
LOC: M ED 11:37 → M ED INP 14:54 → M PCU 16:48
PROVIDERS: Hospitalist
DX: G45.9 Transient cerebral ischemic attack, unspecified (principal); I69.354 Hemiplegia and hemiparesis following cerebral infarction affecting left non-dominant side; I10 Essential (primary) hypertension; E78.5 Hyperlipidemia, unspecified; G40.909 Epilepsy, unspecified, not intractable, without status epilepticus; Z79.01 Long term (current) use of anticoagulants; Z88.8 Allergy status to other drugs, medicaments and biological substances; Z91.013 Allergy to seafood; Z86.718 Personal history of other venous thrombosis and embolism; Z86.711 Personal history of pulmonary embolism; Z90.710 Acquired absence of both cervix and uterus; Z79.899 Other long term (current) drug therapy

== ENCOUNTER → 2017-11-30 | Outpatient (REF) | payer OTHER ==
[2017-12-03 14:18] LABS: LACOSAMIDE LEVEL 21.9 ug/mL (5.0-10.0)
[2017-12-03 14:18] LABS: LEVETIRACETAM (KEPPRA) 57.9 ug/mL (10.0-40.0)
== END ==
LOC: M LABNEURO 13:30
DX: G40.909 Epilepsy, unspecified, not intractable, without status epilepticus (principal)

== ENCOUNTER → 2017-12-31 | Outpatient (CLI) | payer OTHER | LOC: M EKG 13:31 | DX: I25.10 Atherosclerotic heart disease of native coronary artery without angina pectoris (principal) | CPT/HCPCS: 93005 ==

== ENCOUNTER → 2018-08-27 | Outpatient (REF) | payer MEDICARE, MEDICAID ==
[~2018-08-27] MED LIST changes: -/MOM400 PO; -/PROC25SU PR; -/WARF5TA PO; +ACET1TAB55 PO; +AMLO5TAB6 PO; +ASPI-286 PO; +COMP1SUP2 PR; +COUM1TAB17 PO; +D 202000 PO; -DOCU10ELUD PO; +DOCU5LIQ PO; +MILK10SU PO; +NORC1TAB7 PO
[2018-08-27 20:57] LABS: HEMATOCRIT 44.4 % (36.0-47.0); HEMOGLOBIN 14.1 g/dl (12.0-15.5); MEAN CORPUSCULAR HEMOGLOBIN 29.4 pg (27.0-33.0); MEAN CORPUSCULAR HGB CONC 31.8 g/dl (32.0-36.5); MEAN CORPUSCULAR VOLUME 92.7 fl (80.0-96.0); PLATELET COUNT, AUTOMATED 287 10^3/uL (150-450); RED BLOOD COUNT 4.79 10^6/uL (4.00-5.40); WHITE BLOOD COUNT 7.6 10^3/uL (4.0-10.0)
[2018-08-27 21:11] LABS: ALBUMIN 3.9 GM/DL (3.2-5.2); ALT/SGPT 18 U/L (12-78); BILIRUBIN,TOTAL 0.3 MG/DL (0.2-1.0); BLOOD UREA NITROGEN 11 MG/DL (7-18); CALCIUM LEVEL 8.6 MG/DL (8.8-10.2); CARBON DIOXIDE LEVEL 31 MEQ/L (21-32); CHLORIDE LEVEL 106 MEQ/L (98-107); CHOLESTEROL LEVEL 202 MG/DL (<200); CHOLESTEROL RISK RATIO 2.589 (<5); CREATININE FOR GFR 0.48 MG/DL (0.55-1.30); FREE T4 0.93 NG/DL (0.76-1.46); GLOMERULAR FILTRATION RATE > 60.0 (>45); GLUCOSE, FASTING 76 MG/DL (70-100); HDL CHOLESTEROL 78 MG/DL (>40); LDL CHOLESTEROL 101 MG/DL (<100); NON-HDL-C 124 MG/DL; POTASSIUM SERUM 4.1 MEQ/L (3.5-5.1); SODIUM LEVEL 142 MEQ/L (136-145); THYROID STIMULATING HORMONE 0.843 uIU/ML (0.358-3.740); TRIGLYCERIDES LEVEL 113 MG/DL (<150)
== END ==
LOC: M SFHCADAM 14:10
PROVIDERS: ATTEND Physician Assistant
DX: G40.909 Epilepsy, unspecified, not intractable, without status epilepticus (principal); I10 Essential (primary) hypertension; E78.5 Hyperlipidemia, unspecified
CPT/HCPCS: 80053; 80061; 84439; 84443; 85027; G0463

== ENCOUNTER 2018-09-12 10:58 | Emergency (ER) | payer MEDICARE, MEDICAID ==
[~2018-09-12] VITALS: Ht 149.9 cm; Wt 58.2 kg
[~2018-09-12 10:58] MED LIST changes: -NORC1TAB7 PO
--- NOTE | 2018-09-12 11:39 | REP ---
CT Head without contrast HISTORY: Head injury COMPARISON: 05/18/2017 An area of decreased attenuation is present in the right frontal and parietal lobes. There is dilatation of the overlying cortical sulci. This represents an old infarction. Areas of decreased attenuation are present in the periventricular white matter. This represents small-vessel ischemic disease. There is no intraparenchymal hemorrhage, acute infarct, mass or midline shift. The ventricular system the ventricular system and cortical sulci are dilated consistent with minimal volume loss. There is no extra cerebral collection. There is no fracture. The visualized sinuses are clear. IMPRESSION: 1. Old right frontal parietal lobe infarction. 2. Small vessel ischemic disease. 3. Minimal volume loss. Electronically Signed by Cirilo Jones MD 09/12/2018 11:31 A
--- NOTE | 2018-09-12 11:45 | REP ---
CT cervical spine without contrast HISTORY: Trauma COMPARISON: 12/18/2014 A congenital block vertebra is present at the C2-3 level. There is no acute fracture or subluxation. Disc bulges are present at the C3-4 through C5-6 levels. There is minimal narrowing of the spinal canal. The neural foramina are patent. The intervertebral discs and vertebral bodies are normal in height. IMPRESSION: 1. There is no acute fracture or subluxation. 2. There is cervical spondylosis at the C3-4 through C5-6 levels. Electronically Signed by Cirilo Jones MD 09/12/2018 11:37 A
[2018-09-12] MEDS ORDERED: NORCO, ANEXSIA 5/325MG TABLET (HYDROcodone/ACETAMINOPHEN) PO ONE (12:00)
--- NOTE | 2018-09-12 12:15 | REP ---
Bilateral ribs PA chest of four views History: Trauma Comparison: 05/18/2017 The lungs are clear. The heart is normal in size. The pulmonary vasculature is normal in appearance. The bony structure is intact. Impression: No acute disease. Electronically Signed by Cirilo Jones MD 09/12/2018 12:06 P
--- NOTE | 2018-09-12 12:33 | REP ---
LEFT HUMERUS TWO VIEWS: HISTORY: Trauma. There is no acute fracture or dislocation. The joint spaces are normal in appearance. IMPRESSION: There is no acute fracture or dislocation. Electronically Signed by Cirilo Jones MD 09/12/2018 12:54 P
[2018-09-12] MEDS ORDERED: NORC1TAB7 PO (13:07)
[2018-09-12 13:32] VITALS: BP 126/72
== END 2018-09-12 13:34 | disposition home or self-care (01) ==
LOC: M ED 10:58 → EDBD 10:58 → M ED 13:34
DX: S00.03XA Contusion of scalp, initial encounter (principal); S40.022A Contusion of left upper arm, initial encounter; S20.229A Contusion of unspecified back wall of thorax, initial encounter; W18.39XA Other fall on same level, initial encounter; Y92.018 Other place in single-family (private) house as the place of occurrence of the external cause; E78.5 Hyperlipidemia, unspecified; R56.9 Unspecified convulsions; G81.90 Hemiplegia, unspecified affecting unspecified side; Z79.899 Other long term (current) drug therapy; Z79.01 Long term (current) use of anticoagulants; Z88.8 Allergy status to other drugs, medicaments and biological substances; Z91.013 Allergy to seafood

== ENCOUNTER → 2018-09-22 | Outpatient (REF) | payer MEDICARE, MEDICAID ==
[~2018-09-22] MED LIST changes: +NORC1TAB7 PO
== END ==
LOC: M LAB REF 15:47
PROVIDERS: ATTEND Physician Assistant Medical
DX: G40.89 Other seizures (principal)

== ENCOUNTER → 2018-09-30 | Outpatient (REF) | payer MEDICARE, MEDICAID ==
[2018-10-05 00:06] LABS: LACOSAMIDE LEVEL 30.4 ug/mL (5.0-10.0); LEVETIRACETAM (KEPPRA) 60.9 ug/mL (10.0-40.0)
== END ==
LOC: M LAB REF 12:11
PROVIDERS: ATTEND Physician Assistant Medical
DX: G40.89 Other seizures (principal)

== ENCOUNTER → 2018-11-03 | Outpatient (CLI) | payer MEDICARE, MEDICAID ==
--- NOTE | 2018-11-03 16:32 | REP ---
BILATERAL SCREENING DIGITAL MAMMOGRAM WITH 3D TOMOSYNTHESIS: There are no palpable abnormalities or other breast complaints. The the patient states she has not had a clinical breast examination over a year. The the patient states she performs self-breast examinations 12 times per year. The Tyrer Cuzick Score is: 6.6% . Comparisons are 09/29/2016 and 12/25/2014. The breasts are heterogeneously dense, which could obscure small masses. There is no dominant mass, micro calcific cluster or architectural distortion that would indicate malignancy. There are benign calcifications. There are no additional findings on 3D tomosynthesiss. There is no change from the prior study. Impression: BIRADS/ACR category 2 mammogram. Benign findings . Recommendation: Routine annual screening mammography. Because of the increased breast density, annual adjunctive breast MRI in addition to screening mammography is recommended. This mammogram was interpreted with the aid of a FDA approved computer-aided detection system. A. Negative mammogram reports should not delay biopsy if a dominant or clinically suspicious mass is present. B. Not all breast cancers are identified by mammography or tomosynthesis. C. Adenosis and dense breasts may obscure an underlying neoplasm. Patient letter M1 dense breasts. Electronically Signed by Carlos Funk MD 11/03/2018 04:24 P
--- NOTE | 2018-11-04 08:57 | DEXA ---
AP SPINE L1 - L4 0.826 -3.0 -1.4 LT FEMUR TOTAL 0.639 -2.9 -1.7 LT NECK 0.745 -2.1 -0.6 RT FEMUR TOTAL 0.774 -1.9 -0.6 RT NECK 0.714 -2.3 -0.8 TOTAL BODY TOTAL OTHER COMMENTS: There is low bone density of the right hip. There is osteoporosis of the spine. There is osteoporosis of the left hip. FOLLOW-UP: Recommendation for the next bone density exam: 2 years. REJI
== END ==
LOC: M WHC 13:16
PROVIDERS: ATTEND Physician Assistant
DX: Z12.31 Encounter for screening mammogram for malignant neoplasm of breast (principal); Z13.820 Encounter for screening for osteoporosis; R92.1 Mammographic calcification found on diagnostic imaging of breast; M81.0 Age-related osteoporosis without current pathological fracture

== ENCOUNTER → 2018-12-29 | Outpatient (REF) | payer MEDICARE, MEDICAID ==
[2019-01-02 00:12] LABS: LACOSAMIDE LEVEL 11.9 ug/mL (5.0-10.0); LEVETIRACETAM (KEPPRA) 29.1 ug/mL (10.0-40.0)
== END ==
LOC: M LAB REF 11:29
PROVIDERS: ATTEND Physician Assistant Medical
DX: R56.9 Unspecified convulsions (principal); Z51.81 Encounter for therapeutic drug level monitoring; Z79.01 Long term (current) use of anticoagulants

== ENCOUNTER → 2018-12-29 | Outpatient (REF) | payer MEDICARE, MEDICAID ==
[2018-12-29 16:18] LABS: INR 2.59; PROTHROMBIN TIME 27.6 SECONDS (11.8-14.0)
== END ==
LOC: M LAB REF 11:31
PROVIDERS: ATTEND Family Medicine
DX: Z51.81 Encounter for therapeutic drug level monitoring (principal)

== ENCOUNTER → 2019-03-09 | Outpatient (CLI) | payer MEDICARE, MEDICAID ==
[~2019-03-09] MED LIST changes: +PROHANCE 279.3MG/ML 15ML VIAL (A9576) As Ordered ONE
[2019-03-09 10:03] LABS: BLOOD UREA NITROGEN 8 MG/DL (7-18); CREATININE FOR GFR 0.55 MG/DL (0.55-1.30); GLOMERULAR FILTRATION RATE > 60.0 (>45)
--- NOTE | 2019-03-09 13:02 | REP ---
MRI BILATERAL BREASTS WITH AND WITHOUT CONTRAST: HISTORY: Dense breasts. Comparison mammogram 11/03/2018. TECHNIQUE: Multiple sequences obtained in the axial, coronal, and sagittal planes prior to and following the intravenous administration of 12 mL ProHance. Images are evaluated in the [employer] software including axial dynamic T1 fat sat post gadolinium images, subtraction images, color overlay images, CAD images and MIP reconstruction images. Mild to moderate fibroglandular tissue is seen bilaterally. There is mild background parenchymal enhancement bilaterally. No significant cystic change is seen in either breast. There is no evidence of axillary adenopathy. I see no suspicious enhancing mass or morphologic abnormality. IMPRESSION: BIRADS category 1 negative bilateral breast MRI. No suspicious enhancing mass or morphologic abnormality. Electronically Signed by Carlos Valdivia MD 03/09/2019 01:55 P
== END ==
LOC: M RAD 08:56
PROVIDERS: ATTEND Physician Assistant
DX: R92.2 Inconclusive mammogram (principal); I10 Essential (primary) hypertension
CPT/HCPCS: 36415; 82565; 84520; A9576; C8908

== ENCOUNTER → 2019-06-24 | Outpatient (REF) | payer MEDICARE, MEDICAID ==
[~2019-06-24] MED LIST changes: -PROHANCE 279.3MG/ML 15ML VIAL (A9576) As Ordered ONE
[2019-06-28 00:06] LABS: LEVETIRACETAM (KEPPRA) 31.9 ug/mL (10.0-40.0)
== END ==
LOC: M LAB REF 10:29
PROVIDERS: ATTEND Physician Assistant Medical
DX: R56.9 Unspecified convulsions (principal)

== ENCOUNTER → 2019-09-06 | Outpatient (REF) | payer MEDICARE ==
[2019-09-06 11:15] LABS: HEMATOCRIT 42.4 % (36.0-47.0); HEMOGLOBIN 13.6 g/dl (12.0-15.5); MEAN CORPUSCULAR HEMOGLOBIN 28.9 pg (27.0-33.0); MEAN CORPUSCULAR HGB CONC 32.1 g/dl (32.0-36.5); MEAN CORPUSCULAR VOLUME 90.2 fl (80.0-96.0); PLATELET COUNT, AUTOMATED 285 10^3/uL (150-450); WHITE BLOOD COUNT 8.2 10^3/uL (4.0-10.0)
[2019-09-06 12:03] LABS: ALBUMIN 3.9 GM/DL (3.2-5.2); ALT/SGPT 19 U/L (12-78); BILIRUBIN,TOTAL 0.4 MG/DL (0.2-1.0); BLOOD UREA NITROGEN 9 MG/DL (7-18); CALCIUM LEVEL 8.9 MG/DL (8.8-10.2); CARBON DIOXIDE LEVEL 30 MEQ/L (21-32); CHLORIDE LEVEL 105 MEQ/L (98-107); CHOLESTEROL LEVEL 204 MG/DL (<200); CHOLESTEROL RISK RATIO 2.518 (<5); CREATININE FOR GFR 0.49 MG/DL (0.55-1.30); FREE T4 1.09 NG/DL (0.76-1.46); GLOMERULAR FILTRATION RATE > 60.0 (>45); GLUCOSE, FASTING 73 MG/DL (70-100); HDL CHOLESTEROL 81 MG/DL (>40); LDL CHOLESTEROL 101 MG/DL (<100); NON-HDL-C 123 MG/DL; SODIUM LEVEL 140 MEQ/L (136-145); TOTAL PROTEIN 7.3 GM/DL (6.4-8.2); TRIGLYCERIDES LEVEL 111 MG/DL (<150)
[2019-09-06 12:07] LABS: CREATININE, URINE 63.4 MG/DL; MALB URINE SIEMENS < 5.0 MG/L; MAU/CREAT RATIO 7.8 MCG/MG (0.0-30.0)
== END ==
LOC: M LAB REF 09:59
PROVIDERS: ATTEND Physician Assistant
DX: E55.9 Vitamin D deficiency, unspecified (principal); I10 Essential (primary) hypertension; Z79.899 Other long term (current) drug therapy

== ENCOUNTER → 2020-07-02 | Outpatient (REF) | payer MEDICARE, OTHER, MEDICAID ==
[~2020-07-02] MED LIST changes: +AMLO1TAB24 PO; -AMLO5TAB6 PO
== END ==
LOC: M LAB REF 13:29
PROVIDERS: ATTEND Physician Assistant Medical
DX: R56.9 Unspecified convulsions (principal)

== ENCOUNTER → 2020-07-04 | Outpatient (CLI) | payer MEDICARE, OTHER, MEDICAID | LOC: M LABSMTC 13:39 | PROVIDERS: ATTEND Pediatrics | DX: Z11.52 Encounter for screening for COVID-19 (principal) ==

== ENCOUNTER → 2020-08-14 | Outpatient (REF) | payer MEDICARE, OTHER, MEDICAID ==
[2020-08-14 15:25] LABS: INR 2.63; PROTHROMBIN TIME 28.7 SECONDS (12.5-14.3)
== END ==
LOC: M SFHCADAM 15:22
PROVIDERS: ATTEND Physician Assistant
DX: Z86.711 Personal history of pulmonary embolism (principal)

== ENCOUNTER → 2020-08-14 | Outpatient (REF) | payer MEDICARE, OTHER, MEDICAID | LOC: M LAB REF 11:24 | PROVIDERS: ATTEND Physician Assistant Medical | DX: G40.909 Epilepsy, unspecified, not intractable, without status epilepticus (principal); Z51.81 Encounter for therapeutic drug level monitoring; Z86.711 Personal history of pulmonary embolism ==

== ENCOUNTER → 2020-09-27 | Outpatient (REF) | payer MEDICARE, OTHER ==
[2020-09-27 13:56] LABS: HEMATOCRIT 45.3 % (36.0-47.0); HEMOGLOBIN 14.4 g/dl (12.0-15.5); MEAN CORPUSCULAR HEMOGLOBIN 29.2 pg (27.0-33.0); MEAN CORPUSCULAR HGB CONC 31.8 g/dl (32.0-36.5); MEAN CORPUSCULAR VOLUME 91.9 fl (80.0-96.0); PLATELET COUNT, AUTOMATED 287 10^3/uL (150-450); RED BLOOD COUNT 4.93 10^6/uL (4.00-5.40); WHITE BLOOD COUNT 6.9 10^3/uL (4.0-10.0)
[2020-09-27 14:09] LABS: CREATININE, URINE < 13.0 MG/DL; MALB URINE SIEMENS < 5.0 MG/L
[2020-09-27 14:14] LABS: ALBUMIN 4.1 GM/DL (3.2-5.2); ALT/SGPT 18 U/L (12-78); BILIRUBIN,TOTAL 0.4 MG/DL (0.2-1.0); BLOOD UREA NITROGEN 9 MG/DL (7-18); CALCIUM LEVEL 8.9 MG/DL (8.8-10.2); CARBON DIOXIDE LEVEL 33 MEQ/L (21-32); CHLORIDE LEVEL 108 MEQ/L (98-107); CHOLESTEROL LEVEL 238 MG/DL (<200); CHOLESTEROL RISK RATIO 3.012 (<5); CREATININE FOR GFR 0.42 MG/DL (0.55-1.30); FREE T4 0.93 NG/DL (0.76-1.46); GLOMERULAR FILTRATION RATE > 60.0 (>45); GLUCOSE, FASTING 72 MG/DL (70-100); HDL CHOLESTEROL 79 MG/DL (>40); LDL CHOLESTEROL 137 MG/DL (<100); NON-HDL-C 159 MG/DL; POTASSIUM SERUM 4.2 MEQ/L (3.5-5.1); SODIUM LEVEL 143 MEQ/L (136-145); TOTAL PROTEIN 7.6 GM/DL (6.4-8.2); TRIGLYCERIDES LEVEL 111 MG/DL (<150)
== END ==
LOC: M SFHCADAM 11:20
PROVIDERS: ATTEND Physician Assistant
DX: I69.059 Hemiplegia and hemiparesis following nontraumatic subarachnoid hemorrhage affecting unspecified side (principal); I10 Essential (primary) hypertension; E78.5 Hyperlipidemia, unspecified; G40.909 Epilepsy, unspecified, not intractable, without status epilepticus

== ENCOUNTER → 2020-10-18 | Outpatient (CLI) | payer MEDICARE, OTHER ==
--- NOTE | 2020-10-18 10:17 | REP ---
INDICATION: RUQ PAIN. COMPARISON: None. TECHNIQUE: Right upper quadrant sonography FINDINGS: Scanning through the right upper quadrant the abdomen demonstrates a normal sized and walled gallbladder containing mobile shadowing calculi the largest of which measures 1.1 cm in greatest diameter. The common bile duct is normal measuring 0.4 cm in greatest diameter. Liver is not enlarged. No focal liver lesion is seen. Limited views of pancreas show no abnormality. The tail of the pancreas is obscured by abdominal gas. There is no evidence of ascites or right renal abnormality. The right kidney measures 9.5 x 4.8 x 4.1 cm.. IMPRESSION: Cholelithiasis. Otherwise negative right upper quadrant sonogram. <Electronically signed by Jose Calderon > 10/18/20 [id number]
== END ==
LOC: M RAD 09:22
PROVIDERS: ATTEND Physician Assistant
DX: R10.11 Right upper quadrant pain (principal); K81.9 Cholecystitis, unspecified

== ENCOUNTER 2020-10-24 08:22 | Emergency (ER) | payer MEDICARE, OTHER ==
[~2020-10-24] VITALS: Ht 149.9 cm; Wt 59.1 kg
[2020-10-24] MEDS ORDERED: LEVE500T5 (08:41)
[2020-10-24 09:08] LABS: BASO % 0.3 % (0.0-1.0); EOS # 0.2 10^3/uL (0.0-0.5); EOS % 2.7 % (0.0-3.0); HEMATOCRIT 45.2 % (36.0-47.0); HEMOGLOBIN 14.2 g/dl (12.0-15.5); LYMPH # 1.8 10^3/uL (1.5-5.0); LYMPH % 25.9 % (24.0-44.0); MEAN CORPUSCULAR HEMOGLOBIN 29.2 pg (27.0-33.0); MEAN CORPUSCULAR HGB CONC 31.4 g/dl (32.0-36.5); MONO # 0.3 10^3/uL (0.0-0.8); MONO % 4.9 % (2.0-8.0); NEUTROPHILS # 4.6 10^3/uL (1.5-8.5); NEUTROPHILS % 66.1 % (36.0-66.0); PLATELET COUNT, AUTOMATED 193 10^3/uL (150-450); RED BLOOD COUNT 4.86 10^6/uL (4.00-5.40)
--- NOTE | 2020-10-24 09:30 | REP ---
INDICATION: CHEST PAIN. COMPARISON: Comparison chest x-ray September 12, 2018. TECHNIQUE: Two views.. FINDINGS: The lungs are well inflated and no infiltrate is seen. Pleural angles are sharp. Left hemidiaphragm is slightly elevated. The heart is enlarged unchanged. Thoracic aorta is tortuous. Pulmonary vasculature is not increased. EKG electrodes are seen. . there is a wedge-shaped compression fracture deformity at the thoracolumbar junction in what appears to be the L1 vertebral body. This is a new finding when compared with lumbar spine radiographs from December 18, 2014. It appears to be new from a 2017 prior chest x-ray as well. IMPRESSION: Mild cardiomegaly. Moderate wedge compression deformity at the L1 vertebral body as an interval change from the 2017 prior study. Otherwise no acute disease.. <Electronically signed by Jose Calderon > 10/24/20 [id number]
[2020-10-24 09:34] LABS: ALBUMIN 3.8 GM/DL (3.2-5.2); ALT/SGPT 29 U/L (12-78); BILIRUBIN,DIRECT 0.3 MG/DL (0.0-0.2); BILIRUBIN,TOTAL 0.6 MG/DL (0.2-1.0); BLOOD UREA NITROGEN 9 MG/DL (7-18); CALCIUM LEVEL 8.5 MG/DL (8.8-10.2); CARBON DIOXIDE LEVEL 26 MEQ/L (21-32); CHLORIDE LEVEL 111 MEQ/L (98-107); CK-MB VALUE MASS < 1.0 NG/ML (<3.6); CPK CREATINE PHOSPHOKINASE 76 U/L (26-192); CREATININE FOR GFR 0.55 MG/DL (0.55-1.30); GLOMERULAR FILTRATION RATE > 60.0 (>45); GLUCOSE, FASTING 85 MG/DL (70-100); LIPASE 147 U/L (73-393); MB/CK RELATIVE INDEX 1.32 (< OR =4); POTASSIUM SERUM 3.5 MEQ/L (3.5-5.1); SODIUM LEVEL 144 MEQ/L (136-145); TOTAL PROTEIN 7.4 GM/DL (6.4-8.2); TROPONIN I < 0.02 NG/ML (< 0.10)
--- NOTE | 2020-10-24 10:33 | ED PDOC ---
Post-Departure Follow-Up cxr formal report faxed to dr teresa for fu Darcie Ramos MD Oct 24, 2020 10:33
[2020-10-24] MEDS ORDERED: levETIRAcetam 250MG TABLET (KEPPRA) PO ONE (11:15)
[2020-10-24] MEDS ORDERED: LACOSAMIDE 50 MG TAB (VIMPAT) PO ONE (11:15)
[2020-10-24] MEDS: GASTROGRAFIN SOLUTION 30ML PO SCH ×2 (12:30→12:40)
[2020-10-24 12:44] LABS: INR 1.84; PROTHROMBIN TIME 21.7 SECONDS (12.5-14.3)
[2020-10-24 12:45] LABS: PARTIAL THROMBOPLASTIN TIME 33.9 SECONDS (24.2-38.5)
[2020-10-24] MEDS ORDERED: ISOVUE-370 76% 100ML VIAL As Ordered ONE (13:17)
--- NOTE | 2020-10-24 14:39 | REP ---
INDICATION: Gen abd pain. COMPARISON: Right upper quadrant ultrasound 10/18/2020, CT 12/18/2014 TECHNIQUE: Oral Gastrografin mixture per our CT bowel contrast protocol followed by 100 mL Isovue 370 scanning through abdomen and pelvis with coronal and sagittal reconstructions. FINDINGS: CT abdomen: The lung bases show essentially stable dependent atelectatic change or scarring without effusion or infiltrates. Heart size upper limits of normal without specific chamber enlargement left atrium is mildly prominent no pericardial thickening or effusion. Visualized portions of the thoracic aorta were unremarkable. Abdominal aorta without aneurysm or dissection. No hepatomegaly, splenomegaly, focal hepatic or splenic mass nor intrahepatic biliary dilatation. I see no ascites. Gallbladder is mildly distended and has some debris in its dependent portion corresponding to the shadowing stones seen on ultrasound 6 days ago. Common duct in the gio hepatis and pancreatic head region shows no stone or dilatation. Pancreas itself was without mass, peripancreatic fluid or adenopathy. Adrenal glands are normal. There is no renal stone disease, solid or cystic renal mass, hydronephrosis or hydroureter. No ureteral stone. Small bowel loops contrast filled to the terminal ileum with oral contrast reaching the splenic flexure. No bowel wall thickening or mesenteric edema about small bowel loops. Stool and gas seen in the colon without sign of colitis or diverticulitis in the abdomen proper. Stomach show couple of clips anteriorly deep to the right rectus fascia abutting the anterior gastric serosa. This may be related to the previous indwelling gastrostomy tube the patient indicated in her history. The bone windows show grade 1-2 anterior wedge compression deformity the superior endplate of L1, a new finding since the 2014 study. No other compression deformities. Some facet arthropathy lower lumbar spine. Remainder of visualized thoracic and lumbar vertebral bodies normal. I do not see a paraspinal hematoma to suggest that this is an acute compression deformity. The visualized lower ribs are intact. CT pelvis: The bony sacrum, pelvis and hips show some degenerative changes without destructive lesion or fracture there is a curvilinear ossific density posterior to the left femoral head that may be old trauma and is unchanged since the 2014 study.. Distal left colon and sigmoid show a few scattered diverticula without signs of diverticulitis no stricture or mass small bowel loops in the deep pelvis were unremarkable contrast filled. Appendix is seen and normal with oral contrast within it. No ventral or inguinal hernia nor pathologic sized inguinal adenopathy bladder shows evidence for pelvic floor muscular relaxation there is no a bladder mass, wall thickening or stone disease. Distal ureters without dilatation or stone. There are multiple pelvic phleboliths evident. There is no ventral or inguinal hernia nor pathologic sized inguinal adenopathy. No pelvic or intra-ascites. Lung window review of all CT slices of the pelvis and abdomen shows no perforation or free air IMPRESSION: 1. Layering debris in the gallbladder consistent with stones seen on the ultrasound last week. No intra or extrahepatic biliary dilatation hepatic or splenic abnormality or ascites. 2. Colon and small bowel loops without acute finding. Appendix normal. 3. Old posttraumatic change on the left posterior to the hip femoral head stable since 2015. Could be an old avulsion 4. Other upper abdominal solid organs, stomach and lung bases unremarkable. 5. Grade 1 anterior wedge compression deformity of L1 vertebral body without paraspinal hematoma to suggest acuity. It is not present on the [address] CT. 6. No renal, ureteral or bladder stone. <Electronically signed by Naun Espitia > 10/24/20 [id number]
[2020-10-24 16:00] VITALS: BP 147/81
--- NOTE | 2020-10-24 17:26 | ECGEPIP ---
[facility] - ED Test Date: 2020-10-24 Pat Name: INDIRA MCCLURE Department: Room: - Gender: Female Home [employer] Coordinator: : 1955 Requested By: RADHA Ash Order Number: [id number] Reading MD: Kodi Cardona Measurements Intervals [place] Rate: 66 P: 55 FL: 184 QRS: 23 QRSD: 98 T: 16 QT: 388 QTc: 406 Interpretive Statements Normal sinus rhythm with sinus arrhythmia INCOMPLETE RIGHT BUNDLE BRANCH BLOCK SIMILAR TO 12/31/17 Electronically Signed on 10-24-2020 17:25:51 EDT by Kodi Cardona
--- NOTE | 2020-10-28 15:43 | ED PDOC ---
Post-Departure Follow-Up radiology report faxed to Mirian Mcduffie MD Oct 28, 2020 15:43
== END 2020-10-24 16:00 | disposition home or self-care (01) ==
LOC: M ED 08:22 → EDBD 08:22 → M ED 16:00
DX: K80.50 Calculus of bile duct without cholangitis or cholecystitis without obstruction (principal); I45.19 Other right bundle-branch block; S32.010A Wedge compression fracture of first lumbar vertebra, initial encounter for closed fracture; X58.XXXA Exposure to other specified factors, initial encounter; Y92.9 Unspecified place or not applicable; Y93.9 Activity, unspecified; Y99.9 Unspecified external cause status; E78.5 Hyperlipidemia, unspecified; Z86.73 Personal history of transient ischemic attack (TIA), and cerebral infarction without residual deficits; G40.909 Epilepsy, unspecified, not intractable, without status epilepticus; E55.9 Vitamin D deficiency, unspecified; K57.90 Diverticulosis of intestine, part unspecified, without perforation or abscess without bleeding; Z79.01 Long term (current) use of anticoagulants; Z79.82 Long term (current) use of aspirin; Z88.8 Allergy status to other drugs, medicaments and biological substances; Z91.013 Allergy to seafood
CPT/HCPCS: 71046; 74177; 80048; 80076; 82550; 82553; 83690; 84439; 84443; 84484; 85025; 85610; 85730; 93005; 93041; 94760; 99285; Q9963; Q9967

== ENCOUNTER → 2020-11-20 | Outpatient (REF) | payer MEDICARE, OTHER ==
[~2020-11-20] MED LIST changes: +HYDR-3715 PO; +LEVE500T5 PO; +VIMP150T
[2020-11-25 07:07] LABS: LACOSAMIDE LEVEL 10.8 ug/mL (5.0-10.0); LEVETIRACETAM (KEPPRA) 18.2 ug/mL (10.0-40.0)
== END ==
LOC: M LABDRWAD 12:21
PROVIDERS: ATTEND Physician Assistant Medical
DX: Z01.818 Encounter for other preprocedural examination (principal); R56.9 Unspecified convulsions; Z51.81 Encounter for therapeutic drug level monitoring; Z79.01 Long term (current) use of anticoagulants; Z79.899 Other long term (current) drug therapy

== ENCOUNTER → 2020-11-20 | Outpatient (REF) | payer MEDICARE, OTHER ==
[2020-11-20 12:46] LABS: HEMATOCRIT 43.2 % (36.0-47.0); HEMOGLOBIN 13.9 g/dl (12.0-15.5); MEAN CORPUSCULAR HEMOGLOBIN 28.9 pg (27.0-33.0); MEAN CORPUSCULAR HGB CONC 32.2 g/dl (32.0-36.5); MEAN CORPUSCULAR VOLUME 89.8 fl (80.0-96.0); PLATELET COUNT, AUTOMATED 257 10^3/uL (150-450); RED BLOOD COUNT 4.81 10^6/uL (4.00-5.40); WHITE BLOOD COUNT 5.8 10^3/uL (4.0-10.0)
[2020-11-20 12:58] LABS: INR 3.14; PROTHROMBIN TIME 32.6 SECONDS (12.7-14.5)
[2020-11-20 13:15] LABS: ALT/SGPT 20 U/L (12-78); BILIRUBIN,TOTAL 0.4 MG/DL (0.2-1.0); BLOOD UREA NITROGEN 7 MG/DL (7-18); CALCIUM LEVEL 9.2 MG/DL (8.8-10.2); CARBON DIOXIDE LEVEL 33 MEQ/L (21-32); CHLORIDE LEVEL 111 MEQ/L (98-107); CREATININE FOR GFR 0.42 MG/DL (0.55-1.30); GLOMERULAR FILTRATION RATE > 60.0 (>45); GLUCOSE, FASTING 73 MG/DL (70-100); POTASSIUM SERUM 4.2 MEQ/L (3.5-5.1); SODIUM LEVEL 145 MEQ/L (136-145); TOTAL PROTEIN 7.4 GM/DL (6.4-8.2)
== END ==
LOC: M SFHCADAM 10:59
PROVIDERS: ATTEND Physician Assistant
DX: Z01.818 Encounter for other preprocedural examination (principal); Z79.01 Long term (current) use of anticoagulants

== ENCOUNTER → 2020-11-29 | Outpatient (CLI) | payer MEDICARE, OTHER ==
[~2020-11-29] MED LIST changes: -HYDR-3715 PO
== END ==
LOC: M LABSMTC 11:46
PROVIDERS: ATTEND Anesthesiology
DX: Z01.818 Encounter for other preprocedural examination (principal); Z11.52 Encounter for screening for COVID-19

== ENCOUNTER 2020-12-04 08:38 | Day surgery (SDC) | payer MEDICARE, OTHER ==
[~2020-12-04] VITALS: Ht 149.9 cm; Wt 56.7 kg
[~2020-12-04 08:38] MED LIST changes: +LR 1,000 ML IV ONE
[2020-12-04] MEDS ORDERED: MIDAZOLAM INJ 2MG/2ML VIAL (J2250 PER 1MG) As Ordered ONE (08:46)
[2020-12-04] MEDS ORDERED: fentaNYL 100 MCG/2 ML INJECTION (J3010) As Ordered ONE ×2 (08:48→11:38)
[2020-12-04 09:28] LABS: INR 1.2; PROTHROMBIN TIME 15.6 SECONDS (12.7-14.5)
[2020-12-04] MEDS ORDERED: BUPIVACAINE HCL 0.25% 30ML VIAL As Ordered ONE (09:40)
[2020-12-04] MEDS ORDERED: diphenhydrAMINE 50MG/ML VIAL (J1200) As Ordered ONE (10:31)
[2020-12-04] MEDS ORDERED: GLYCOPYRROLATE INJ 0.2 MG/ML 2 ML VIAL As Ordered ONE (10:37)
[2020-12-04] MEDS ORDERED: ACETAMINOPHEN 1000MG 100ML IV BTL (OFIRMEV) (J0131 PER 10MG) As Ordered ONE (10:41)
[2020-12-04] MEDS ORDERED: propofoL 200 MG/20 ML VIAL As Ordered ONE (10:48)
[2020-12-04] MEDS ORDERED: LIDOCAINE 2% 100MG/5ML SDV (FOR ANES.) As Ordered ONE (10:49)
[2020-12-04] MEDS ORDERED: ONDANSETRON 4MG/2ML VIAL As Ordered ONE (10:54)
[2020-12-04] MEDS ORDERED: SUGAMMADEX SODIUM 500 MG/5 ML VIAL (BRIDION) As Ordered ONE (10:56)
[2020-12-04] MEDS ORDERED: dexameTHASONE 4 MG/ML 1ML VIAL (J1100 PER 1MG) As Ordered ONE (11:34)
[2020-12-04] MEDS ORDERED: KETOROLAC 60MG 2ML VIAL As Ordered ONE (11:52)
[2020-12-04] MEDS ORDERED: fentaNYL 100 MCG/2 ML INJECTION (J3010) IV PRN (12:30)
[2020-12-04] MEDS ORDERED: ONDANSETRON 4MG/2ML VIAL IV PRN (12:30)
[2020-12-04] MEDS ORDERED: oxyCODONE 5MG TAB PO PRN (12:30)
[2020-12-04] MEDS ORDERED: LR 1,000 ML IV SCH (12:30)
[2020-12-04] MEDS ORDERED: ACETAMINOPHEN TAB 650MG DOSE (2X325MG) PO PRN (12:35)
[2020-12-04] MEDS ORDERED: NORCO, ANEXSIA 5/325MG TABLET (HYDROcodone/ACETAMINOPHEN) PO PRN (12:35)
[2020-12-04] MEDS ORDERED: HYDR-3715 PO (14:11)
[2020-12-04 15:00] VITALS: BP 152/82
== END 2020-12-04 15:24 | disposition home or self-care (01) ==
LOC: M SDC 08:38
PROVIDERS: ATTEND Surgery
DX: K80.10 Calculus of gallbladder with chronic cholecystitis without obstruction (principal); D75.82 Heparin induced thrombocytopenia (HIT); Z86.711 Personal history of pulmonary embolism; I69.354 Hemiplegia and hemiparesis following cerebral infarction affecting left non-dominant side; I69.391 Dysphagia following cerebral infarction; G43.909 Migraine, unspecified, not intractable, without status migrainosus; I10 Essential (primary) hypertension; Z86.718 Personal history of other venous thrombosis and embolism; E78.5 Hyperlipidemia, unspecified; Z88.8 Allergy status to other drugs, medicaments and biological substances; Z91.013 Allergy to seafood; Z79.899 Other long term (current) drug therapy; Z79.01 Long term (current) use of anticoagulants; Z79.82 Long term (current) use of aspirin
CPT/HCPCS: 36415; 47562; 85610; 88304; J0131; J1100; J1200; J1885; J2405; J3010; S2900

== ENCOUNTER → 2021-01-11 | Outpatient (REF) | payer MEDICARE, OTHER ==
[~2021-01-11] MED LIST changes: +HYDR-3715 PO; -LR 1,000 ML IV ONE
[2021-01-11 16:29] LABS: BLOOD UREA NITROGEN 10 MG/DL (7-18); CALCIUM LEVEL 8.7 MG/DL (8.8-10.2); CARBON DIOXIDE LEVEL 31 MEQ/L (21-32); CHLORIDE LEVEL 107 MEQ/L (98-107); CREATININE FOR GFR 0.42 MG/DL (0.55-1.30); GLOMERULAR FILTRATION RATE > 60.0 (>45); GLUCOSE, FASTING 80 MG/DL (70-100); POTASSIUM SERUM 3.7 MEQ/L (3.5-5.1); SODIUM LEVEL 142 MEQ/L (136-145)
== END ==
LOC: M LAB REF 15:24
PROVIDERS: ATTEND Physician Assistant
DX: M81.0 Age-related osteoporosis without current pathological fracture (principal)

== ENCOUNTER 2021-01-17 14:16 | Outpatient (CLI) | payer MEDICARE, OTHER ==
[~2021-01-17] VITALS: Ht 149.9 cm; Wt 57.7 kg
[~2021-01-17 14:16] MED LIST changes: +ZOLEDRONIC ACID 5 MG in IV 1 EA IV ONE
[2021-01-17 14:40] VITALS: BP 133/78
[2021-01-17 15:30] VITALS: BP 163/77
== END 2021-01-17 15:30 | disposition home or self-care (01) ==
LOC: M INFU 14:16
PROVIDERS: ATTEND Physician Assistant
DX: M80.00XD Age-related osteoporosis with current pathological fracture, unspecified site, subsequent encounter for fracture with routine healing (principal)
CPT/HCPCS: 96365; J3489

== ENCOUNTER → 2021-03-06 | Outpatient (REF) | payer MEDICARE, OTHER ==
[~2021-03-06] MED LIST changes: +ONDA4TAB6 PO; -ZOLEDRONIC ACID 5 MG in IV 1 EA IV ONE
[2021-03-12 06:08] LABS: LACOSAMIDE LEVEL 16.9 ug/mL (5.0-10.0); LEVETIRACETAM (KEPPRA) 39.6 ug/mL (10.0-40.0)
== END ==
LOC: M LAB REF 14:35
PROVIDERS: ATTEND Physician Assistant Medical
DX: R56.9 Unspecified convulsions (principal)

== ENCOUNTER 2021-04-10 00:21 | Emergency (ER) | payer MEDICARE, OTHER ==
[~2021-04-10 00:21] MED LIST changes: -ONDA4TAB6 PO
[2021-04-10 01:37] LABS: RSV AMPLIFICATION NEGATIVE (NEGATIVE)
[2021-04-10] MEDS ORDERED: NS 1,000 ML IV ONE (02:25)
[2021-04-10] MEDS ORDERED: ONDANSETRON 4MG/2ML VIAL IV ONE (02:25)
[2021-04-10] MEDS ORDERED: KETOROLAC 30 MG/ML 1ML VIAL IV ONE (02:25)
[2021-04-10 03:05] LABS: BASO % 0.2 % (0.0-1.0); EOS % 0.2 % (0.0-3.0); HEMATOCRIT 40.8 % (36.0-47.0); HEMOGLOBIN 13.7 g/dl (12.0-15.5); LYMPH # 0.7 10^3/uL (1.5-5.0); LYMPH % 11.2 % (24.0-44.0); MEAN CORPUSCULAR HEMOGLOBIN 29.2 pg (27.0-33.0); MEAN CORPUSCULAR HGB CONC 33.6 g/dl (32.0-36.5); MONO # 0.2 10^3/uL (0.0-0.8); MONO % 3.8 % (2.0-8.0); NEUTROPHILS # 5.1 10^3/uL (1.5-8.5); NEUTROPHILS % 84.4 % (36.0-66.0); RED BLOOD COUNT 4.69 10^6/uL (4.00-5.40)
[2021-04-10 03:16] LABS: INR 1.79; PARTIAL THROMBOPLASTIN TIME 25.4 SECONDS (25.9-37.0); PROTHROMBIN TIME 21.2 SECONDS (12.7-14.5)
[2021-04-10 03:21] LABS: PLATELET COUNT, AUTOMATED 104 10^3/uL (150-450)
[2021-04-10 03:39] LABS: ALBUMIN 3.6 GM/DL (3.2-5.2); ALT/SGPT 22 U/L (12-78); BILIRUBIN,DIRECT < 0.1 MG/DL (0.0-0.2); BILIRUBIN,TOTAL 0.4 MG/DL (0.2-1.0); BLOOD UREA NITROGEN 7 MG/DL (7-18); CALCIUM LEVEL 8.3 MG/DL (8.8-10.2); CARBON DIOXIDE LEVEL 27 MEQ/L (21-32); CHLORIDE LEVEL 101 MEQ/L (98-107); CREATININE FOR GFR 0.42 MG/DL (0.55-1.30); GLOMERULAR FILTRATION RATE > 60.0 (>45); GLUCOSE, FASTING 124 MG/DL (70-100); LIPASE 45 U/L (73-393); POTASSIUM SERUM 4.4 MEQ/L (3.5-5.1); SODIUM LEVEL 134 MEQ/L (136-145); TOTAL PROTEIN 7.5 GM/DL (6.4-8.2)
[2021-04-10] MEDS ORDERED: ONDA4TAB6 PO (03:55)
[2021-04-10 04:15] VITALS: BP 135/65
== END 2021-04-10 04:34 | disposition home or self-care (01) ==
LOC: M ED 00:21
DX: U07.1 COVID-19 (principal); R11.2 Nausea with vomiting, unspecified; I11.9 Hypertensive heart disease without heart failure; E78.5 Hyperlipidemia, unspecified; R56.9 Unspecified convulsions; Z86.718 Personal history of other venous thrombosis and embolism; Z86.73 Personal history of transient ischemic attack (TIA), and cerebral infarction without residual deficits; Z79.01 Long term (current) use of anticoagulants; Z79.899 Other long term (current) drug therapy
CPT/HCPCS: 70450; 71045; 80048; 80076; 83690; 85025; 85610; 85730; 87631; 93041; 96374; 96375; 99285; J1885; J2405

== ENCOUNTER → 2021-04-23 | Outpatient (REF) | payer MEDICARE, OTHER ==
[~2021-04-23] MED LIST changes: +ONDA4TAB6 PO
[2021-04-23 18:08] LABS: HEMATOCRIT 40.6 % (36.0-47.0); HEMOGLOBIN 13.2 g/dl (12.0-15.5); MEAN CORPUSCULAR HEMOGLOBIN 28.8 pg (27.0-33.0); MEAN CORPUSCULAR HGB CONC 32.5 g/dl (32.0-36.5); MEAN CORPUSCULAR VOLUME 88.6 fl (80.0-96.0); PLATELET COUNT, AUTOMATED 259 10^3/uL (150-450); RED BLOOD COUNT 4.58 10^6/uL (4.00-5.40); WHITE BLOOD COUNT 4.7 10^3/uL (4.0-10.0)
[2021-04-23 18:18] LABS: INR 2.49; PROTHROMBIN TIME 27.3 SECONDS (12.7-14.5)
[2021-04-23 18:43] LABS: ALBUMIN 3.8 GM/DL (3.2-5.2); ALT/SGPT 27 U/L (12-78); BILIRUBIN,TOTAL 0.3 MG/DL (0.2-1.0); BLOOD UREA NITROGEN 6 MG/DL (7-18); CALCIUM LEVEL 8.6 MG/DL (8.8-10.2); CARBON DIOXIDE LEVEL 33 MEQ/L (21-32); CHLORIDE LEVEL 107 MEQ/L (98-107); CHOLESTEROL LEVEL 194 MG/DL (<200); CHOLESTEROL RISK RATIO 2.984 (<5); CREATININE FOR GFR 0.49 MG/DL (0.55-1.30); FREE T4 1.12 NG/DL (0.76-1.46); GLOMERULAR FILTRATION RATE > 60.0 (>45); GLUCOSE, FASTING 86 MG/DL (70-100); HDL CHOLESTEROL 65 MG/DL (>40); LDL CHOLESTEROL 108 MG/DL (<100); NON-HDL-C 129 MG/DL; POTASSIUM SERUM 3.6 MEQ/L (3.5-5.1); SODIUM LEVEL 142 MEQ/L (136-145); THYROID STIMULATING HORMONE 0.672 uIU/ML (0.358-3.740); TOTAL PROTEIN 7.3 GM/DL (6.4-8.2); TRIGLYCERIDES LEVEL 106 MG/DL (<150)
[2021-04-23 18:44] LABS: TOTAL 25(OH) VITAMIN D 20.7 NG/ML (30.0-100.0)
== END ==
LOC: M SFHCADAM 15:28
PROVIDERS: ATTEND Physician Assistant
DX: E55.9 Vitamin D deficiency, unspecified (principal); I10 Essential (primary) hypertension; E78.5 Hyperlipidemia, unspecified; M81.0 Age-related osteoporosis without current pathological fracture; Z79.01 Long term (current) use of anticoagulants

== ENCOUNTER → 2021-05-29 | Outpatient (REF) | payer MEDICARE, OTHER ==
[2021-05-29 11:01] LABS: BASO % 0.6 % (0.0-1.0); EOS # 0.3 10^3/uL (0.0-0.5); EOS % 4.7 % (0.0-3.0); HEMATOCRIT 40.6 % (36.0-47.0); LYMPH # 1.8 10^3/uL (1.5-5.0); LYMPH % 34.4 % (24.0-44.0); MEAN CORPUSCULAR VOLUME 90.4 fl (80.0-96.0); MONO # 0.3 10^3/uL (0.0-0.8); MONO % 5.1 % (2.0-8.0); NEUTROPHILS # 2.9 10^3/uL (1.5-8.5); PLATELET COUNT, AUTOMATED 249 10^3/uL (150-450); RED BLOOD COUNT 4.49 10^6/uL (4.00-5.40); WHITE BLOOD COUNT 5.3 10^3/uL (4.0-10.0)
[2021-05-29 11:28] LABS: ALBUMIN 3.7 GM/DL (3.2-5.2); ALT/SGPT 17 U/L (12-78); BILIRUBIN,TOTAL 0.3 MG/DL (0.2-1.0); BLOOD UREA NITROGEN 11 MG/DL (7-18); CALCIUM LEVEL 8.9 MG/DL (8.8-10.2); CARBON DIOXIDE LEVEL 30 MEQ/L (21-32); CHLORIDE LEVEL 106 MEQ/L (98-107); CREATININE FOR GFR 0.42 MG/DL (0.55-1.30); GLOMERULAR FILTRATION RATE > 60.0 (>45); GLUCOSE, FASTING 77 MG/DL (70-100); POTASSIUM SERUM 3.7 MEQ/L (3.5-5.1); SODIUM LEVEL 142 MEQ/L (136-145); TOTAL PROTEIN 7.2 GM/DL (6.4-8.2)
== END ==
LOC: M LAB REF 10:41
PROVIDERS: ATTEND Psychiatry & Neurology Neurology
DX: R56.9 Unspecified convulsions (principal)

== ENCOUNTER → 2022-01-16 | Outpatient (REF) | payer MEDICARE, OTHER ==
[~2022-01-16] MED LIST changes: -ASPI-286 PO; +SM C81CH2 PO
[2022-01-16 12:23] LABS: BASO % 0.3 % (0.0-1.0); EOS # 0.4 10^3/uL (0.0-0.5); EOS % 6.8 % (0.0-3.0); HEMATOCRIT 39.4 % (36.0-47.0); HEMOGLOBIN 12.9 g/dl (12.0-15.5); LYMPH # 2.3 10^3/uL (1.5-5.0); LYMPH % 37.8 % (24.0-44.0); MEAN CORPUSCULAR HEMOGLOBIN 29.7 pg (27.0-33.0); MEAN CORPUSCULAR HGB CONC 32.7 g/dl (32.0-36.5); MEAN CORPUSCULAR VOLUME 90.6 fl (80.0-96.0); MONO # 0.3 10^3/uL (0.0-0.8); MONO % 4.4 % (2.0-8.0); NEUTROPHILS # 3.1 10^3/uL (1.5-8.5); NEUTROPHILS % 50.4 % (36.0-66.0); PLATELET COUNT, AUTOMATED 219 10^3/uL (150-450); RED BLOOD COUNT 4.35 10^6/uL (4.00-5.40); WHITE BLOOD COUNT 6.2 10^3/uL (4.0-10.0)
[2022-01-16 13:05] LABS: ALBUMIN 3.6 GM/DL (3.2-5.2); ALT/SGPT 18 U/L (12-78); BILIRUBIN,TOTAL 0.5 MG/DL (0.2-1.0); BLOOD UREA NITROGEN 12 MG/DL (7-18); CALCIUM LEVEL 8.6 MG/DL (8.8-10.2); CARBON DIOXIDE LEVEL 30 MEQ/L (21-32); CHLORIDE LEVEL 106 MEQ/L (98-107); CREATININE FOR GFR 0.52 MG/DL (0.55-1.30); GLOMERULAR FILTRATION RATE > 60.0 (>45); GLUCOSE, FASTING 105 MG/DL (70-100); SODIUM LEVEL 141 MEQ/L (136-145); TOTAL PROTEIN 6.9 GM/DL (6.4-8.2)
== END ==
LOC: M LAB REF 11:47
PROVIDERS: ATTEND Physician Assistant
DX: R19.7 Diarrhea, unspecified (principal)

== ENCOUNTER 2022-02-14 11:03 | Emergency (ER) | payer OTHER, MEDICARE ==
[~2022-02-14] VITALS: Ht 149.9 cm; Wt 53.6 kg
[2022-02-14 14:51] LABS: BASO % 0.2 % (0.0-1.0); EOS # 0.3 10^3/uL (0.0-0.5); EOS % 4.5 % (0.0-3.0); HEMATOCRIT 38.8 % (36.0-47.0); HEMOGLOBIN 12.8 g/dl (12.0-15.5); LYMPH # 1.8 10^3/uL (1.5-5.0); LYMPH % 31.5 % (24.0-44.0); MEAN CORPUSCULAR HEMOGLOBIN 29.7 pg (27.0-33.0); MONO # 0.3 10^3/uL (0.0-0.8); MONO % 5.8 % (2.0-8.0); NEUTROPHILS # 3.4 10^3/uL (1.5-8.5); NEUTROPHILS % 57.8 % (36.0-66.0); PLATELET COUNT, AUTOMATED 216 10^3/uL (150-450); RED BLOOD COUNT 4.31 10^6/uL (4.00-5.40); WHITE BLOOD COUNT 5.8 10^3/uL (4.0-10.0)
[2022-02-14 15:16] LABS: BLOOD UREA NITROGEN 8 MG/DL (7-18); C REACTIVE PROTEIN QUANTITATIV 2.05 MG/DL (0.00-0.30); CALCIUM LEVEL 9.4 MG/DL (8.8-10.2); CARBON DIOXIDE LEVEL 30 MEQ/L (21-32); CHLORIDE LEVEL 105 MEQ/L (98-107); CREATININE FOR GFR 0.39 MG/DL (0.55-1.30); GLOMERULAR FILTRATION RATE > 60.0 (>45); GLUCOSE, FASTING 87 MG/DL (70-100); POTASSIUM SERUM 3.8 MEQ/L (3.5-5.1); SODIUM LEVEL 138 MEQ/L (136-145)
[2022-02-14] MEDS ORDERED: cefTRIAXone SOD 1 GM in D5W MINI-BAG PLUS 50 ML IV ONE (15:45)
[2022-02-14 15:47] LABS: ERYTHROCYTE SEDIMENTATION RATE 33 mm/hr (0-30)
[2022-02-14] MEDS ORDERED: CEPH500C PO (16:24)
[2022-02-14 17:05] VITALS: BP 136/74
== END 2022-02-14 17:08 | disposition home or self-care (01) ==
LOC: M ED 11:03
DX: L03.113 Cellulitis of right upper limb (principal); E78.5 Hyperlipidemia, unspecified; R56.9 Unspecified convulsions; Z86.718 Personal history of other venous thrombosis and embolism; Z86.73 Personal history of transient ischemic attack (TIA), and cerebral infarction without residual deficits; Z90.89 Acquired absence of other organs; Z90.710 Acquired absence of both cervix and uterus; Z88.8 Allergy status to other drugs, medicaments and biological substances; Z91.013 Allergy to seafood; Z79.01 Long term (current) use of anticoagulants; Z79.899 Other long term (current) drug therapy
CPT/HCPCS: 73080; 76882; 80048; 85025; 85652; 86140; 96365; 99284; J0696

== ENCOUNTER 2022-03-18 14:30 | Outpatient (CLI) | payer MEDICARE, OTHER ==
[~2022-03-18] VITALS: Ht 144.8 cm; Wt 52.3 kg
[2022-03-18 14:30] VITALS: BP 120/67
[~2022-03-18 14:30] MED LIST changes: +CEPH500C PO; +ZOLEDRONIC ACID 5 MG in IV 1 EA IV ONE
[2022-03-18 15:20] VITALS: BP 125/64
== END 2022-03-18 15:20 | disposition home or self-care (01) ==
LOC: M INFU 14:30
PROVIDERS: ATTEND Family Medicine
DX: M81.0 Age-related osteoporosis without current pathological fracture (principal)
CPT/HCPCS: 96413; J3489

== ENCOUNTER → 2022-09-04 | Outpatient (REF) | payer MEDICARE, OTHER ==
[~2022-09-04] MED LIST changes: -ZOLEDRONIC ACID 5 MG in IV 1 EA IV ONE
[2022-09-04 14:11] LABS: BASO % 0.5 % (0.0-1.0); EOS # 0.2 10^3/uL (0.0-0.5); EOS % 2.7 % (0.0-3.0); HEMATOCRIT 39.6 % (36.0-47.0); HEMOGLOBIN 12.6 g/dl (12.0-15.5); LYMPH # 2.6 10^3/uL (1.5-5.0); LYMPH % 41.8 % (24.0-44.0); MEAN CORPUSCULAR HEMOGLOBIN 29.1 pg (27.0-33.0); MEAN CORPUSCULAR HGB CONC 31.8 g/dl (32.0-36.5); MEAN CORPUSCULAR VOLUME 91.5 fl (80.0-96.0); MONO # 0.3 10^3/uL (0.0-0.8); MONO % 5.4 % (2.0-8.0); NEUTROPHILS # 3.1 10^3/uL (1.5-8.5); NEUTROPHILS % 49.3 % (36.0-66.0); PLATELET COUNT, AUTOMATED 236 10^3/uL (150-450); RED BLOOD COUNT 4.33 10^6/uL (4.00-5.40); WHITE BLOOD COUNT 6.3 10^3/uL (4.0-10.0)
[2022-09-04 14:36] LABS: THYROID STIMULATING HORMONE 0.811 uIU/ML (0.55-4.78)
[2022-09-04 14:38] LABS: TOTAL 25(OH) VITAMIN D 30.7 NG/ML (20.0-100.0)
[2022-09-04 14:39] LABS: ALBUMIN 3.8 G/DL (3.2-5.2); ALKALINE PHOSPHATASE 55 U/L (46-116); ALT/SGPT 16 U/L (7.0-40); AST/SGOT 17 U/L (<34); BILIRUBIN,TOTAL 0.3 MG/DL (0.3-1.2); BLOOD UREA NITROGEN 8 MG/DL (9-23); CALCIUM LEVEL 8.7 MG/DL (8.3-10.6); CARBON DIOXIDE LEVEL 31 MMOL/L (20-31); CHLORIDE LEVEL 107 MMOL/L (98-107); GLOMERULAR FILTRATION RATE > 60.0 (>45); GLUCOSE, FASTING 61 MG/DL (74-106); POTASSIUM SERUM 3.6 MMOL/L (3.5-5.1); SODIUM LEVEL 143 MMOL/L (136-145); TOTAL PROTEIN 6.7 G/DL (5.7-8.2)
== END ==
LOC: M LAB REF 13:10
PROVIDERS: ATTEND Physician Assistant
DX: Z12.31 Encounter for screening mammogram for malignant neoplasm of breast (principal); Z13.820 Encounter for screening for osteoporosis; R63.4 Abnormal weight loss

== ENCOUNTER 2022-09-06 15:37 | Emergency (ER) | payer MEDICARE, OTHER ==
[~2022-09-06] VITALS: Ht 144.8 cm; Wt 51.8 kg
[2022-09-06 15:56] VITALS: TEMP 98
[2022-09-06] MEDS ORDERED: WARF4TAB52 PO (16:29)
[2022-09-06 17:30] VITALS: BP 119/70
[2022-09-06] MEDS ORDERED: ACETAMINOPHEN 325 MG TAB PO ONE (17:35)
[2022-09-06 17:37] VITALS: O2SAT 98
[2022-09-06 17:49] LABS: BASO % 0.2 % (0.0-1.0); EOS # 0.1 10^3/uL (0.0-0.5); EOS % 1.1 % (0.0-3.0); HEMATOCRIT 43.4 % (36.0-47.0); HEMOGLOBIN 14.1 g/dl (12.0-15.5); LYMPH # 1.7 10^3/uL (1.5-5.0); LYMPH % 13.3 % (24.0-44.0); MEAN CORPUSCULAR HEMOGLOBIN 29.4 pg (27.0-33.0); MEAN CORPUSCULAR HGB CONC 32.5 g/dl (32.0-36.5); MEAN CORPUSCULAR VOLUME 90.4 fl (80.0-96.0); MONO # 0.5 10^3/uL (0.0-0.8); MONO % 4.2 % (2.0-8.0); NEUTROPHILS # 10.1 10^3/uL (1.5-8.5); NEUTROPHILS % 80.9 % (36.0-66.0); PLATELET COUNT, AUTOMATED 232 10^3/uL (150-450); WHITE BLOOD COUNT 12.5 10^3/uL (4.0-10.0)
[2022-09-06 18:00] LABS: INR 1.93; PROTHROMBIN TIME 22.4 SECONDS (12.5-14.5)
[2022-09-06 18:06] LABS: BLOOD UREA NITROGEN 7 MG/DL (9-23); CALCIUM LEVEL 9.1 MG/DL (8.3-10.6); CARBON DIOXIDE LEVEL 30 MMOL/L (20-31); CHLORIDE LEVEL 105 MMOL/L (98-107); CREATININE FOR GFR 0.42 MG/DL (0.55-1.30); GLOMERULAR FILTRATION RATE > 60.0 (>45); GLUCOSE, FASTING 79 MG/DL (74-106); POTASSIUM SERUM 3.9 MMOL/L (3.5-5.1); SODIUM LEVEL 144 MMOL/L (136-145)
== END 2022-09-06 19:33 | disposition home or self-care (01) ==
LOC: M ED 15:37
DX: S01.01XA Laceration without foreign body of scalp, initial encounter (principal); W19.XXXA Unspecified fall, initial encounter; Y92.009 Unspecified place in unspecified non-institutional (private) residence as the place of occurrence of the external cause; Y93.89 Activity, other specified; Y99.8 Other external cause status; Z88.8 Allergy status to other drugs, medicaments and biological substances; Z91.013 Allergy to seafood; Z86.711 Personal history of pulmonary embolism; Z79.01 Long term (current) use of anticoagulants; Z79.899 Other long term (current) drug therapy

== ENCOUNTER → 2022-09-08 | Outpatient (REF) | payer MEDICARE, OTHER ==
[~2022-09-08] MED LIST changes: +WARF4TAB52 PO
== END ==
LOC: M SFHCADAM 12:27
PROVIDERS: ATTEND Physician Assistant
DX: Z53.9 Procedure and treatment not carried out, unspecified reason (principal)

== ENCOUNTER → 2022-09-08 | Outpatient (CLI) | payer MEDICARE, OTHER | LOC: M ADAMS 13:02 | PROVIDERS: ATTEND Physician Assistant | DX: S70.02XA Contusion of left hip, initial encounter (principal); W19.XXXA Unspecified fall, initial encounter; Y92.9 Unspecified place or not applicable; Y93.9 Activity, unspecified; Y99.9 Unspecified external cause status ==

== ENCOUNTER → 2022-09-12 | Outpatient (CLI) | payer MEDICARE, MEDICAID | LOC: M WHC 13:19 | PROVIDERS: ATTEND Physician Assistant | DX: Z12.31 Encounter for screening mammogram for malignant neoplasm of breast (principal); M81.0 Age-related osteoporosis without current pathological fracture ==

== ENCOUNTER → 2023-02-09 | Outpatient (REF) | payer MEDICARE, MEDICAID, OTHER ==
[2023-02-09 13:23] LABS: CHOLESTEROL RISK RATIO 2.33 (<5); HDL CHOLESTEROL 71.4 MG/DL (>40); LDL CHOLESTEROL 83.4 MG/DL (<100); NON-HDL-C 95.6 MG/DL
== END ==
LOC: M LAB REF 11:24
PROVIDERS: ATTEND Physician Assistant
DX: E78.00 Pure hypercholesterolemia, unspecified (principal)

== ENCOUNTER → 2023-02-23 | Outpatient (REF) | payer MEDICARE, MEDICAID, OTHER ==
[2023-02-23 13:10] LABS: INR 1.73; PROTHROMBIN TIME 19.7 SECONDS (12.5-14.5)
== END ==
LOC: M LAB REF 12:20
PROVIDERS: ATTEND Physician Assistant
DX: I69.859 Hemiplegia and hemiparesis following other cerebrovascular disease affecting unspecified side (principal); Z79.01 Long term (current) use of anticoagulants

== ENCOUNTER → 2023-03-19 | Outpatient (REF) | payer MEDICARE, OTHER ==
[2023-03-19 19:10] LABS: BLOOD UREA NITROGEN 11 MG/DL (9-23); CALCIUM LEVEL 9.7 MG/DL (8.3-10.6); CARBON DIOXIDE LEVEL 32 MMOL/L (20-31); CHLORIDE LEVEL 105 MMOL/L (98-107); CREATININE FOR GFR 0.35 MG/DL (0.55-1.30); GLOMERULAR FILTRATION RATE > 60.0 (>39); GLUCOSE, FASTING 98 MG/DL (74-106); POTASSIUM SERUM 4.3 MMOL/L (3.5-5.1); SODIUM LEVEL 143 MMOL/L (136-145)
== END ==
LOC: M SFHCADAM 17:37
PROVIDERS: ATTEND Physician Assistant
DX: M81.0 Age-related osteoporosis without current pathological fracture (principal)

== ENCOUNTER 2023-03-24 14:53 | Outpatient (CLI) | payer MEDICARE ==
[2023-03-24] MEDS ORDERED: ZOLEDRONIC ACID 5 MG in IV 1 EA IV ONE (16:00)
[2023-03-24 16:13] VITALS: BP 132/77; O2SAT 98
[2023-03-24 16:36] VITALS: BP 137/71; O2SAT 100
== END 2023-03-24 16:40 | disposition home or self-care (01) ==
LOC: M INFU 14:53
PROVIDERS: ATTEND Family Medicine
DX: M81.0 Age-related osteoporosis without current pathological fracture (principal); Z88.3 Allergy status to other anti-infective agents; Z88.8 Allergy status to other drugs, medicaments and biological substances
CPT/HCPCS: 96365; J3489

== ENCOUNTER → 2023-09-24 | Outpatient (CLI) | payer MEDICARE, OTHER ==
[~2023-09-24] MED LIST changes: +ONDA-282 PO; -ONDA4TAB6 PO
== END ==
LOC: M WHC 15:16
PROVIDERS: ATTEND Physician Assistant
DX: Z12.31 Encounter for screening mammogram for malignant neoplasm of breast (principal)

== ENCOUNTER → 2023-09-24 | Outpatient (CLI) | payer MEDICARE, OTHER ==
[2023-09-24 12:14] LABS: HEMATOCRIT 37.2 % (36.0-47.0); HEMOGLOBIN 12.2 g/dl (12.0-15.5); MEAN CORPUSCULAR HGB CONC 32.8 g/dl (32.0-36.5); MEAN CORPUSCULAR VOLUME 91.4 fl (80.0-96.0); PLATELET COUNT, AUTOMATED 236 10^3/uL (150-450); RED BLOOD COUNT 4.07 10^6/uL (4.00-5.40); WHITE BLOOD COUNT 5.5 10^3/uL (4.0-10.0)
[2023-09-24 12:39] LABS: ALBUMIN 3.4 G/DL (3.2-5.2); ALKALINE PHOSPHATASE 51 U/L (46-116); ALT/SGPT 14 U/L (7.0-40); AST/SGOT 12 U/L (<34); BILIRUBIN,TOTAL 0.4 MG/DL (0.3-1.2); BLOOD UREA NITROGEN 9 MG/DL (9-23); CALCIUM LEVEL 8.7 MG/DL (8.3-10.6); CARBON DIOXIDE LEVEL 32 MMOL/L (20-31); CHLORIDE LEVEL 105 MMOL/L (98-107); CHOLESTEROL LEVEL 208 MG/DL (<200); CHOLESTEROL RISK RATIO 2.86 (<5); CREATININE FOR GFR 0.42 MG/DL (0.55-1.30); GLOMERULAR FILTRATION RATE > 60.0 (>39); GLUCOSE, FASTING 77 MG/DL (74-106); HDL CHOLESTEROL 72.7 MG/DL (>40); LDL CHOLESTEROL 116.5 MG/DL (<100); NON-HDL-C 135.3 MG/DL; POTASSIUM SERUM 3.6 MMOL/L (3.5-5.1); SODIUM LEVEL 140 MMOL/L (136-145); TOTAL PROTEIN 6.3 G/DL (5.7-8.2); TRIGLYCERIDES LEVEL 94 MG/DL (<150)
[2023-09-24 12:46] LABS: TOTAL 25(OH) VITAMIN D 27.6 NG/ML (20.0-100.0)
== END ==
LOC: M LAB 08:48
PROVIDERS: ATTEND Physician Assistant
DX: M81.0 Age-related osteoporosis without current pathological fracture (principal); E78.00 Pure hypercholesterolemia, unspecified; I10 Essential (primary) hypertension

== ENCOUNTER → 2024-04-15 | Outpatient (CLI) | payer MEDICARE, OTHER | LOC: M RAD 12:42 | PROVIDERS: ATTEND Physician Assistant Medical | DX: R60.0 Localized edema (principal) ==

== ENCOUNTER → 2024-05-10 | Outpatient (CLI) | payer MEDICARE, OTHER | LOC: M WHC 14:48 | PROVIDERS: ATTEND Physician Assistant | DX: Z12.31 Encounter for screening mammogram for malignant neoplasm of breast (principal); Z53.9 Procedure and treatment not carried out, unspecified reason ==

== ENCOUNTER → 2024-05-10 | Outpatient (REF) | payer MEDICARE, OTHER ==
[2024-05-10 18:11] LABS: HEMATOCRIT 41.3 % (36.0-47.0); HEMOGLOBIN 13.5 g/dl (12.0-15.5); MEAN CORPUSCULAR HEMOGLOBIN 29.9 pg (27.0-33.0); MEAN CORPUSCULAR HGB CONC 32.7 g/dl (32.0-36.5); MEAN CORPUSCULAR VOLUME 91.4 fl (80.0-96.0); PLATELET COUNT, AUTOMATED 249 10^3/uL (150-450); RED BLOOD COUNT 4.52 10^6/uL (4.00-5.40); WHITE BLOOD COUNT 6.8 10^3/uL (4.0-10.0)
[2024-05-10 18:16] LABS: FREE T4 1.21 NG/DL (0.89-1.76); THYROID STIMULATING HORMONE 0.746 uIU/ML (0.55-4.78)
[2024-05-10 18:19] LABS: ALBUMIN 3.8 G/DL (3.2-5.2); ALKALINE PHOSPHATASE 65 U/L (35-104); ALT/SGPT 16 U/L (7.0-40); AST/SGOT 17 U/L (<34); BILIRUBIN,TOTAL 0.3 MG/DL (0.3-1.2); BLOOD UREA NITROGEN 14 MG/DL (9-23); CALCIUM LEVEL 9.2 MG/DL (8.3-10.6); CARBON DIOXIDE LEVEL 30 MMOL/L (20-31); CHLORIDE LEVEL 107 MMOL/L (98-107); CHOLESTEROL LEVEL 223 MG/DL (<200); CHOLESTEROL RISK RATIO 2.77 (<5); CREATININE FOR GFR 0.42 MG/DL (0.55-1.30); GLOMERULAR FILTRATION RATE > 60.0 (>39); GLUCOSE, FASTING 91 MG/DL (74-106); HDL CHOLESTEROL 80.4 MG/DL (>40); LDL CHOLESTEROL 112.6 MG/DL (<100); NON-HDL-C 142.6 MG/DL; POTASSIUM SERUM 4.4 MMOL/L (3.5-5.1); SODIUM LEVEL 145 MMOL/L (136-145); TOTAL 25(OH) VITAMIN D 27.9 NG/ML (20.0-100.0); TOTAL PROTEIN 7.4 G/DL (5.7-8.2); TRIGLYCERIDES LEVEL 150 MG/DL (<150)
[2024-05-10 18:20] LABS: VITAMIN B12 LEVEL 380 PG/ML (211-911)
[2024-05-10 18:25] LABS: FOLATE 10.2 NG/ML (>5.4)
== END ==
LOC: M LABDRWAD 17:27
PROVIDERS: ATTEND Physician Assistant
DX: Z00.00 Encounter for general adult medical examination without abnormal findings (principal); Z79.01 Long term (current) use of anticoagulants; I69.354 Hemiplegia and hemiparesis following cerebral infarction affecting left non-dominant side; G40.909 Epilepsy, unspecified, not intractable, without status epilepticus; Z86.711 Personal history of pulmonary embolism; M80.00XD Age-related osteoporosis with current pathological fracture, unspecified site, subsequent encounter for fracture with routine healing; E78.00 Pure hypercholesterolemia, unspecified; Z79.899 Other long term (current) drug therapy

== ENCOUNTER → 2024-05-19 | Outpatient (CLI) | payer MEDICARE ==
[2024-05-19 11:34] LABS: INR 1.66; PROTHROMBIN TIME 19.9 SECONDS (12.5-14.5)
== END ==
LOC: M LAB 10:41
PROVIDERS: ATTEND Physician Assistant
DX: Z86.711 Personal history of pulmonary embolism (principal)

== ENCOUNTER 2024-05-25 14:05 | Outpatient (CLI) | payer MEDICARE, OTHER ==
[~2024-05-25] VITALS: Ht 144.8 cm; Wt 57.0 kg
[2024-05-25 14:45] VITALS: BP 168/79; O2SAT 96
[2024-05-25] MEDS: ZOLEDRONIC ACID 5 MG in IV 1 EA IV ONE (14:48)
[2024-05-25 15:26] VITALS: BP 136/72; O2SAT 97
== END 2024-05-25 15:30 ==
LOC: M INFU 14:05
PROVIDERS: ATTEND Physician Assistant
DX: M81.0 Age-related osteoporosis without current pathological fracture (principal); Z88.8 Allergy status to other drugs, medicaments and biological substances; Z91.013 Allergy to seafood
CPT/HCPCS: 96365; J3489

== ENCOUNTER 2025-02-25 14:09 | Emergency (ER) | payer MEDICARE, MEDICAID ==
[~2025-02-25] VITALS: Ht 149.9 cm; Wt 55.5 kg
[~2025-02-25 14:09] MED LIST changes: +NYST100085 TOP
[2025-02-25 18:40] LABS: INR 2.89
[2025-02-25 21:30] VITALS: BP 142/65; O2SAT 98
[2025-02-25 21:45] VITALS: TEMP 96.7
== END 2025-02-25 21:48 | disposition home or self-care (01) ==
LOC: M ED 14:09
DX: S30.0XXA Contusion of lower back and pelvis, initial encounter (principal); S40.022A Contusion of left upper arm, initial encounter; Y92.9 Unspecified place or not applicable; Y93.9 Activity, unspecified; Y99.9 Unspecified external cause status; W01.0XXA Fall on same level from slipping, tripping and stumbling without subsequent striking against object, initial encounter; Z86.73 Personal history of transient ischemic attack (TIA), and cerebral infarction without residual deficits; Z88.8 Allergy status to other drugs, medicaments and biological substances; Z91.013 Allergy to seafood; Z79.01 Long term (current) use of anticoagulants; Z79.899 Other long term (current) drug therapy